=== PATIENT | male | born 1955 | race Caucasian/White ===

== ENCOUNTER 2018-02-04 11:22 | Emergency (ER) | payer OTHER ==
[2018-02-04] MEDS ORDERED: IPRATROPIUM/ALBUTEROL 0.5-2.5 MG/3 ML AMPUL NEB ONE (11:39)
--- NOTE | 2018-02-04 11:42 | ER Document Report ---
ED Medical Screen (RME) - General Chief Complaint: Shortness Of Breath Stated Complaint: COUGH Time Seen by Provider: 02/04/18 11:35 Notes: RME DISCLOSURE I have seen this patient as part of a Rapid Medical Evaluation and, if applicable, placed any initially appropriate orders. The patient will be seen and fully evaluated, including a full history and physical exam, by a provider ( in Main ED or Fast Track) when a room becomes available. 62-year-old male PMH interstitial pneumonitis (on CellCept therapy and daily prednisone) here with complaints of cough, shortness of breath, wheezing, fevers /chills, generalized weakness ongoing for the past 1-2 weeks and progressively worsening. He does wear home oxygen for his interstitial pneumonitis. He does also have a history of pneumonia. He is primarily here today because his cough has become significantly worse in the past few days. EXAM Mild to moderate diffuse end expiratory wheezes bilaterally Mildly diminished aeration Tachycardic, low 100s TRAVEL OUTSIDE OF THE [place] IN LAST 30 DAYS: No - Related Data Allergies/Adverse Reactions: No Known Allergies Allergy (Verified 02/04/18 11:24) Past Medical History - Social History Chew tobacco use (# tins/day): No Frequency of alcohol use: None Drug Abuse: None Endocrine Medical History: Reports: Hx Diabetes Mellitus Type 2 Renal/ Medical History: Denies: Hx Peritoneal Dialysis GI Medical History: Reports: Hx Gastroesophageal Reflux Disease Musculoskeltal Medical History: Reports Hx Arthritis Past Surgical History: Reports: Hx Cardiac Catheterization, Hx Cardiac Surgery - ablasion - Immunizations Immunizations up to date: Yes Hx Diphtheria, Pertussis, Tetanus Vaccination: Yes Physical Exam - Vital signs Vitals: Temp Pulse Resp BP Pulse Ox 97.8 F 109 H 18 148/72 H 97 02/04/18 11:30 02/04/18 11:30 02/04/18 11:30 02/04/18 11:30 02/04/18 11:30 Course - Vital Signs Vital signs: Temp Pulse Resp BP Pulse Ox 97.8 F 109 H 18 148/72 H 97 02/04/18 11:30 02/04/18 11:30 02/04/18 11:30 02/04/18 11:30 02/04/18 11:30
--- NOTE | 2018-02-04 12:09 | ER Document Report ---
ED General - General Chief Complaint: Shortness Of Breath Stated Complaint: COUGH Time Seen by Provider: 02/04/18 11:35 TRAVEL OUTSIDE OF THE [place] IN LAST 30 DAYS: No - HPI Patient complains to provider of: coughing Notes: 62-year-old male with chronic interstitial pneumonitis, chronically wearing oxygen presents with cough for 2 weeks. This cough is been increasing in intensity over the last 10 days. Patient also has recent exposure to a young child with pneumonia. Patient denies fever chills chest pain, nausea, vomiting. - Related Data Allergies/Adverse Reactions: No Known Allergies Allergy (Verified 02/04/18 11:24) Past Medical History - Social History Smoking Status: Never Smoker Chew tobacco use (# tins/day): No Frequency of alcohol use: None Drug Abuse: None Family History: Reviewed & Not Pertinent Patient has suicidal ideation: No Patient has homicidal ideation: No Endocrine Medical History: Reports: Hx Diabetes Mellitus Type 2 Renal/ Medical History: Denies: Hx Peritoneal Dialysis GI Medical History: Reports: Hx Gastroesophageal Reflux Disease Musculoskeltal Medical History: Reports Hx Arthritis Past Surgical History: Reports: Hx Cardiac Catheterization, Hx Cardiac Surgery - ablasion - Immunizations Immunizations up to date: Yes Hx Diphtheria, Pertussis, Tetanus Vaccination: Yes Review of Systems - Review of Systems Notes: REVIEW OF SYSTEMS: CONSTITUTIONAL: -fevers, -chills EENT: -eye pain, -difficulty swallowing, -nasal congestion CARDIOVASCULAR: -chest pain, -syncope. RESPIRATORY: Increased cough GASTROINTESTINAL: -abdominal pain, -nausea, -vomiting, -diarrhea GENITOURINARY: -dysuria, -hematuria MUSCULOSKELETAL: -back pain, -neck pain SKIN: -rash or skin lesions. HEMATOLOGIC: -easy bruising or bleeding. LYMPHATIC: -swollen, enlarged glands. NEUROLOGICAL: -altered mental status or loss of consciousness, -headache, - neurologic symptoms PSYCHIATRIC: -anxiety, -depression. ALL OTHER SYSTEMS REVIEWED AND NEGATIVE. Physical Exam - Vital signs Vitals: Temp Pulse Resp BP Pulse Ox 97.8 F 109 H 18 148/72 H 97 02/04/18 11:30 02/04/18 11:30 02/04/18 11:30 02/04/18 11:30 02/04/18 11:30 - Notes Notes: PHYSICAL EXAMINATION: GENERAL: Well-appearing, well-nourished and in no acute distress. HEAD: Atraumatic, normocephalic. EYES: Pupils equal round and reactive to light, extraocular movements intact, sclera anicteric, conjunctiva are normal. ENT: nares patent, oropharynx clear without exudates. Moist mucous membranes. NECK: Normal range of motion, supple without lymphadenopathy LUNGS: Breath sounds clear to auscultation bilaterally and equal. No wheezes rales or rhonchi. HEART: Regular rate and rhythm without murmurs ABDOMEN: Soft, nontender, normoactive bowel sounds. No guarding, no rebound. No masses appreciated. EXTREMITIES: Normal range of motion, no pitting or edema. No cyanosis. NEUROLOGICAL: Cranial nerves grossly intact. Normal speech, normal gait. Normal sensory and motor exams. PSYCH: Normal mood, normal affect. SKIN: Warm, Dry, normal turgor, no rashes or lesions noted. Course - Re-evaluation Re-evalutation: 02/04/18 12:45 Well-appearing man in no acute distress stable vital signs within normal limits. Extensive lab workup unremarkable, negative for leukocytosis. Chest x-ray is no focal infiltrate patient was concern he had a pneumonia. Near his baseline oxygen demand. Will be discharged home follow-up strict return because - Vital Signs Vital signs: Temp Pulse Resp BP Pulse Ox 97.8 F 109 H 18 148/72 H 97 02/04/18 11:30 02/04/18 11:30 02/04/18 11:30 02/04/18 11:30 02/04/18 11:30 - Laboratory Result Diagrams: 02/04/18 11:55 02/04/18 11:55 Laboratory results interpreted by me: 02/04/18 02/04/18 11:55 11:55 RBC 4.32 L Hgb 11.7 L Hct 35.3 L RDW 14.7 H Potassium 3.5 L Glucose 155 H Discharge - Discharge Clinical Impression: Cough Condition: Good Instructions: Cough Suppressant & Expectorant Medications Additional Instructions: See your PCP
[2018-02-04 12:15] LABS: ABSOLUTE BASOPHILS # (AUTO) 0.1 10^3/uL (0.0-0.2); ABSOLUTE EOSINOPHILS # (AUTO) 0.3 10^3/uL (0.0-0.6); ABSOLUTE LYMPHOCYTES (AUTO) 1.2 10^3/uL (0.5-4.7); ABSOLUTE MONOCYTES (AUTO) 0.8 10^3/uL (0.1-1.4); ABSOLUTE NEUT (AUTO) 4.7 10^3/uL (1.7-8.2); BASOPHILS % (AUTO) 0.7 % (0-2); HEMATOCRIT 35.3 % (37.9-51.0); HEMOGLOBIN 11.7 g/dL (13.5-17.0); MEAN CORPUSCULAR HEMOGLOBIN 27.2 pg (27.0-33.4); MEAN CORPUSCULAR HGB CONC 33.3 g/dL (32.0-36.0); MEAN CORPUSCULAR VOLUME 82 fl (80-97); MONOCYTES % (AUTO) 11.7 % (3-13); PLATELET COUNT 327 10^3/uL (150-450); RED BLOOD COUNT 4.32 10^6/uL (4.35-5.55); RED CELL DISTRIBUTION WIDTH 14.7 % (11.5-14.0); SEGMENTED NEUTROPHILS % (AUTO) 66.6 % (42-78); TOTAL CELLS COUNTED % (AUTO) 100 %; WHITE BLOOD COUNT 7.1 10^3/uL (4.0-10.5)
[2018-02-04 12:35] LABS: ANION GAP 17 (5-19); BLOOD UREA NITROGEN 19 mg/dL (7-20); CALCIUM 9.5 mg/dL (8.4-10.2); CARBON DIOXIDE 26 mmol/L (22-30); CHLORIDE 98 mmol/L (98-107); GLUCOSE 155 mg/dL (75-110); POTASSIUM 3.5 mmol/L (3.6-5.0); SODIUM 140.5 mmol/L (137-145)
--- NOTE | 2018-02-04 12:39 | RADIOLOGY REPORT (SQ) ---
EXAM DESCRIPTION: CHEST PA/LAT COMPLETED DATE/TIME: 02/04/2018 12:20 pm REASON FOR STUDY: cough fever; eval pneumonia COMPARISON: 04/25/2014. EXAM PARAMETERS: NUMBER OF VIEWS: two views TECHNIQUE: Digital Frontal and Lateral radiographic views of the chest acquired. RADIATION DOSE: NA LIMITATIONS: none FINDINGS: LUNGS AND PLEURA: Chronic interstitial changes. Stable mild focal scarring in the right m id lung. Pleural thickening in the apices. No focal infiltrates, masses or pneumothorax. No pleural effusion. MEDIASTINUM AND HILAR STRUCTURES: No masses or contour abnormalities. HEART AND VASCULAR STRUCTURES: Heart normal size. No evidence for failure. BONES: No acute findings. HARDWARE: None in the chest. OTHER: No other significant finding. IMPRESSION: STABLE CHRONIC PLEURAL AND PARENCHYMAL SCARRING. NO ACUTE RADIOGRAPHIC FINDING IN THE C HEST. TECHNICAL DOCUMENTATION: JOB ID: [id number] [employer]- All Rights Reserved Reading location - IP/workstation name: [email or web address]
[2018-02-04 13:32] VITALS: BP 124/86
--- NOTE | 2018-02-04 22:07 | EKG REPORT ---
SEVERITY:- ABNORMAL ECG - SINUS RHYTHM INCOMPLETE RIGHT BUNDLE BRANCH BLOCK : Confirmed by: True Ashley 04-Feb-2018 22:06:41
== END 2018-02-04 14:06 | disposition home or self-care (01) ==
LOC: ER 11:22
DX: J84.89 Other specified interstitial pulmonary diseases (principal); Z99.81 Dependence on supplemental oxygen; R05 Cough; E11.9 Type 2 diabetes mellitus without complications
CPT/HCPCS: 93005; 94640; 99285; 36415; 87040; 85025; 80048; 71046; 93010; J7620

== ENCOUNTER 2018-02-16 13:21 | Inpatient (IN) | payer OTHER ==
[2018-02-16] MEDS ORDERED: NORMAL SALINE 1000 ML 1,000 ML IV ONE ×2 (13:52→14:13)
[2018-02-16] MEDS ORDERED: VANCOMYCIN HCL INJ 1000 MG VIAL IV ONE (13:53)
[2018-02-16] MEDS ORDERED: IPRATROPIUM/ALBUTEROL 0.5-2.5 MG/3 ML AMPUL NEB ONE ×2 (13:53→14:21)
[2018-02-16] MEDS ORDERED: CEFEPIME 1 GM/D5W RTU 1 GM/50 ML RTUPB IV ONE ×2 (13:53→22:32)
--- NOTE | 2018-02-16 13:55 | ER Document Report ---
ED Medical Screen (RME) - General Chief Complaint: Productive Cough Stated Complaint: FEVER COUGH Time Seen by Provider: 02/16/18 13:51 Mode of Arrival: Wheelchair Information source: Patient Notes: This is a 62-year-old oxygen dependent, immune compromised man with hypersensitivity pneumonitis (followed at [facility]) who presents to the emergency room with fever 102-103, productive cough of brown sputum and oxygen desaturations. TRAVEL OUTSIDE OF THE [place] IN LAST 30 DAYS: No - Related Data Allergies/Adverse Reactions: No Known Allergies Allergy (Verified 02/16/18 13:24) Past Medical History Endocrine Medical History: Reports: Hx Diabetes Mellitus Type 2 - neuropathy Renal/ Medical History: Denies: Hx Peritoneal Dialysis GI Medical History: Reports: Hx Gastroesophageal Reflux Disease Musculoskeltal Medical History: Reports Hx Arthritis Past Surgical History: Reports: Hx Cardiac Catheterization, Hx Cardiac Surgery - ablasion - Immunizations Immunizations up to date: Yes Hx Diphtheria, Pertussis, Tetanus Vaccination: Yes
--- NOTE | 2018-02-16 14:13 | ER Document Report ---
ED General - General Chief Complaint: Productive Cough Stated Complaint: FEVER COUGH Time Seen by Provider: 02/16/18 13:51 Mode of Arrival: Wheelchair Information source: Patient, Relative Notes: 62-year-old male history of interstitial pneumonitis who has been on steroids for the past year presents with 3 week duration of difficulty breathing. Patient was seen here a few weeks prior told he may be allergic since he was afebrile at that time, patient notes that he is normally at 2-3 L baseline nasal cannula but has gone up to 5 L recently has been having fevers and continued productive green cough family notes when ambulating sats go down ot 75% TRAVEL OUTSIDE OF THE [place] IN LAST 30 DAYS: No - HPI Onset: Other Onset/Duration: Persistent, Worse Quality of pain: Achy Severity: Moderate Pain Level: 1 Associated symptoms: Productive cough, Fever, Nausea, Shortness of breath Exacerbated by: Walking Relieved by: Denies Similar symptoms previously: Yes Recently seen / treated by doctor: Yes - Related Data Allergies/Adverse Reactions: No Known Allergies Allergy (Verified 02/16/18 13:24) Past Medical History - General Information source: Patient - Social History Smoking Status: Never Smoker Cigarette use (# per day): No Chew tobacco use (# tins/day): No Smoking Education Provided: No Family History: Reviewed & Not Pertinent Patient has suicidal ideation: No Patient has homicidal ideation: No Endocrine Medical History: Reports: Hx Diabetes Mellitus Type 2 - neuropathy Renal/ Medical History: Denies: Hx Peritoneal Dialysis GI Medical History: Reports: Hx Gastroesophageal Reflux Disease Musculoskeltal Medical History: Reports Hx Arthritis Past Surgical History: Reports: Hx Cardiac Catheterization, Hx Cardiac Surgery - ablasion - Immunizations Immunizations up to date: Yes Hx Diphtheria, Pertussis, Tetanus Vaccination: Yes Review of Systems - Review of Systems Notes: REVIEW OF SYSTEMS: CONSTITUTIONAL : Admits to fevers EENT: Denies eye, ear, throat, or mouth pain or symptoms. Denies nasal or sinus congestion or discharge. Denies throat, tongue, or mouth swelling or difficulty swallowing. CARDIOVASCULAR: Denies chest pain. Denies palpitations or racing or irregular heart beat. Denies ankle edema. RESPIRATORY: Admits to cough congestion productive shortness of breath GASTROINTESTINAL: Denies abdominal pain or distention. Denies nausea, vomiting , or diarrhea. Denies blood in vomitus, stools, or per rectum. Denies black, tarry stools. Denies constipation. GENITOURINARY: Denies difficulty urinating, painful urination, burning, frequency, blood in urine, or discharge. MUSCULOSKELETAL: Denies back or neck pain or stiffness. Denies joint pain or swelling. SKIN: Denies rash, lesions or sores. HEMATOLOGIC : Denies easy bruising or bleeding. LYMPHATIC: Denies swollen, enlarged glands. NEUROLOGICAL: Denies confusion or altered mental status. Denies passing out or loss of consciousness. Denies dizziness or lightheadedness. Denies headache. Denies weakness or paralysis or loss of use of either side. Denies problems with gait or speech. Denies sensory loss, numbness, or tingling. Denies seizures. PSYCHIATRIC: Denies anxiety or stress. Denies depression, suicidal ideation, or homicidal ideation. ALL OTHER SYSTEMS REVIEWED AND NEGATIVE. Dictation was performed using [employer] voice recognition software PHYSICAL EXAMINATION: GENERAL: Overall well-appearing but noted to be febrile HEAD: Atraumatic, normocephalic. EYES: Pupils equal round and reactive to light, extraocular movements intact, sclera anicteric, conjunctiva are normal. ENT: Nares patent, oropharynx clear without exudates. Moist mucous membranes. NECK: Normal range of motion, supple without lymphadenopathy LUNGS: Coarse wheezing all throughout HEART: Tachycardia ABDOMEN: Soft, nontender, nondistended abdomen. No guarding, no rebound. No masses appreciated. Musculoskeletal: Normal range of motion, no pitting or edema. No cyanosis. NEUROLOGICAL: Cranial nerves grossly intact. Normal speech, normal gait. Normal sensory, motor exams PSYCH: Normal mood, normal affect. SKIN: Warm, Dry, normal turgor, no rashes or lesions noted. Course - Re-evaluation Re-evalutation: 02/16/18 14:28 pt overall looks well, but noted to by febrile, tachycardia , hypoxemia on O2, will order sepsis workup up, antibitiocs, fluids , imaging pending for probable penumona. - Laboratory Result Diagrams: 02/16/18 14:41 02/16/18 14:41 Laboratory results interpreted by me: 02/16/18 02/16/18 02/16/18 14:41 14:41 14:41 WBC 17.4 H RBC 3.72 L Hgb 9.9 L Hct 30.5 L MCH 26.6 L RDW 15.3 H Plt Count 506 H Seg Neutrophils % 84.5 H Lymphocytes % 5.9 L Absolute Neutrophils 14.7 H VBG pH 7.43 H Potassium 3.2 L Glucose 184 H Direct Bilirubin 0.6 H Albumin 3.4 L - Diagnostic Test Radiology reviewed: Image reviewed, Reports reviewed - pneumonia - EKG Interpretation by Wi EKG shows normal: Sinus rhythm, [place], Intervals, QRS Complexes Rate: Tachycardia Critical Care Note - Critical Care Note Total time excluding time spent on procedures (mins): 46 Comments: 46 minutes of critical care time spent in direct contact evaluating and reevaluating the patient, treating symptoms, reviewing labs and studies and speaking with family and consultants excluding any procedures Discharge - Discharge Clinical Impression: Hypokalemia Pneumonia Qualifiers: Pneumonia type: due to unspecified organism Laterality: right Lung location: lower lobe of lung Qualified Code(s): J18.1 - Lobar pneumonia, unspecified organism Sepsis Qualifiers: Sepsis type: sepsis due to unspecified organism Qualified Code(s): A41.9 - Sepsis, unspecified organism Condition: Fair Disposition: ADMITTED INPATIENT Admitting Provider: Hospitalist Unit Admitted: Telemetry
[2018-02-16] MEDS: NORMAL SALINE 1000 ML 1,000 ML IV PRN ×2 (14:40→15:19)
[2018-02-16 14:58] LABS: VENOUS BLOOD BASE EXCESS 0.7 mmol/L; VENOUS BLOOD HCO3 24.8 mmol/L (20-32); VENOUS BLOOD PCO2 38.3 mmHg (35-63); VENOUS BLOOD PH 7.43 (7.30-7.42)
[2018-02-16 14:59] LABS: ABSOLUTE BASOPHILS # (AUTO) 0.1 10^3/uL (0.0-0.2); ABSOLUTE EOSINOPHILS # (AUTO) 0.2 10^3/uL (0.0-0.6); ABSOLUTE MONOCYTES (AUTO) 1.4 10^3/uL (0.1-1.4); ABSOLUTE NEUT (AUTO) 14.7 10^3/uL (1.7-8.2); BASOPHILS % (AUTO) 0.5 % (0-2); EOSINOPHILS % (AUTO) 1.3 % (0-6); HEMATOCRIT 30.5 % (37.9-51.0); HEMOGLOBIN 9.9 g/dL (13.5-17.0); LYMPHOCYTES % (AUTO) 5.9 % (13-45); MEAN CORPUSCULAR HEMOGLOBIN 26.6 pg (27.0-33.4); MEAN CORPUSCULAR HGB CONC 32.4 g/dL (32.0-36.0); MEAN CORPUSCULAR VOLUME 82 fl (80-97); MONOCYTES % (AUTO) 7.8 % (3-13); PLATELET COUNT 506 10^3/uL (150-450); RED BLOOD COUNT 3.72 10^6/uL (4.35-5.55); RED CELL DISTRIBUTION WIDTH 15.3 % (11.5-14.0); SEGMENTED NEUTROPHILS % (AUTO) 84.5 % (42-78); TOTAL CELLS COUNTED % (AUTO) 100 %; WHITE BLOOD COUNT 17.4 10^3/uL (4.0-10.5)
[2018-02-16 15:18] LABS: ALANINE AMINOTRANSFERASE 33 U/L (21-72); ALBUMIN 3.4 g/dL (3.5-5.0); ALKALINE PHOSPHATASE 123 U/L (38-126); ANION GAP 16 (5-19); ASPARTATE AMINO TRANSFERASE 26 U/L (17-59); BILIRUBIN,DIRECT 0.6 mg/dL (0.0-0.4); BILIRUBIN,TOTAL 0.8 mg/dL (0.2-1.3); BLOOD UREA NITROGEN 13 mg/dL (7-20); CALCIUM 8.8 mg/dL (8.4-10.2); CARBON DIOXIDE 23 mmol/L (22-30); CHLORIDE 101 mmol/L (98-107); GLUCOSE 184 mg/dL (75-110); POTASSIUM 3.2 mmol/L (3.6-5.0); SODIUM 139.6 mmol/L (137-145); TOTAL PROTEIN 6.5 g/dL (6.3-8.2)
--- NOTE | 2018-02-16 15:18 | RADIOLOGY REPORT (SQ) ---
EXAM DESCRIPTION: CHEST SINGLE VIEW COMPLETED DATE/TIME: 02/16/2018 2:56 pm REASON FOR STUDY: fever, tachy, productive cough, hx interstitial pn COMPARISON: Chest films 02/04/2018, 04/25/2014 EXAM PARAMETERS: NUMBER OF VIEWS: One view. TECHNIQUE: Single frontal radiographic view of the chest acquired. RADIATION DOSE: NA LIMITATIONS: None. FINDINGS: LUNGS AND PLEURA: There is bilateral lower lobe airspace disease with Gregg lines worriso me for fluid overload or congestive failure. Patient has bandlike scarring in the right mid lung along the minor fissure, stable. No pleural effusion. No pneumothorax. MEDIASTINUM AND HILAR STRUCTURES: No masses. Contour normal. HEART AND VASCULAR STRUCTURES: No cardiomegaly BONES: No acute findings. HARDWARE: None in the chest. OTHER: No other significant finding. IMPRESSION: Chronic bandlike scarring right mid lung New alveolar and interstitial infiltrates at both lung bases, worrisome for alveolar and interstitial edema. Pneumonia could not entirely be excluded TECHNICAL DOCUMENTATION: JOB ID: [id number] [employer]- All Rights Reserved Reading location - IP/workstation name: [email or web address]
[2018-02-16] MEDS ORDERED: OSELTAMIVIR PHOSPHATE 75 MG CAPSULE PO ONE (17:32)
[2018-02-16] MEDS ORDERED: ONDANSETRON HCL INJ/PF 4 MG/2 ML SDV IV PRN (18:27)
[2018-02-16] MEDS ORDERED: ACETAMINOPHEN 325 MG TABLET PO PRN (18:27)
[2018-02-16] MEDS ORDERED: POTASSIUM CHLORIDE 10 MEQ TABLET.SA PO ONE (18:33)
[2018-02-16] MEDS ORDERED: VANCOMYCIN HCL 0 MG in DEXTROSE 5%-WATER 250 ML IV NR (18:45)
[2018-02-16] MEDS ORDERED: DEXTROSE 40% GEL 15 GM TUBE PO PRN ×2 (18:51)
[2018-02-16] MEDS ORDERED: GLUCAGON,HUMAN RECOMB 1 MG INJ IM PRN (18:51)
[2018-02-16] MEDS ORDERED: DEXTROSE 50%-WATER 25 GM/50 ML DISP.SYRIN IV PRN ×2 (18:51)
[2018-02-16] MEDS ORDERED: ALBUTEROL SULFATE 0.083% NEB 2.5 MG/3 ML AMPUL NEB PRN (18:57)
--- NOTE | 2018-02-16 18:57 | PDOC H&P ---
History of Present Illness Admission Date/PCP: 02/16/18 15:29 PR Patient complains of: Shortness of breath and cough History of Present Illness: MARILYNN GARCÍA is a 62 year old male presents to hospital with complaint of shortness of breath and cough for the last several days. reports that patient was seen at [place] by Dr. Kent who placed patient on CellCept and decrease patient's steroids. Patient states that by the end of November he began having more respiratory issues. reports that patient's breathing continued to worsen into December and recently they came to the emergency room for evaluation. reports that they were told that was most likely due to allergies and patient was sent home from the emergency department. Family represented today because of patient not feeling better. also reported that patient has been febrile at home. reports that temperature has been from 100.2F -103.6. Pt states that sat decreased to 75% with exertion. Conference call was held with the ER hospitalist and [place] pulmonary service who recommended that patient be transferred to their facility but due to them being on diversion recommended that patient stay here in our hospital until bed is available. [place] pulmonary doctor Grace recommended that patient be placed on Bactrim for PCP treatment, steroids, and continue with current antibiotics. Past Medical History Endocrine Medical History: Reports: Diabetes Mellitus Type 2 - neuropathy GI Medical History: Reports: Gastroesophageal Reflux Disease Musculoskeltal Medical History: Reports: Arthritis Past Surgical History Past Surgical History: Reports: Cardiac Catheterization Social History Information Source: Patient Lives with: Family Smoking Status: Never Smoker Frequency of Alcohol Use: None Hx Recreational Drug Use: No Drugs: None Hx Prescription Drug Abuse: No - Advance Directive Resuscitation Status: Do Not Resuscitate Family History Family History: Reviewed & Not Pertinent Parental Family History Reviewed: Yes Children Family History Reviewed: Yes Sibling(s) Family History Reviewed.: Yes Medication/Allergy Home Medications: Oxycodone HCl/Acetaminophen [Percocet 5-325 mg Tablet] 1 - 2 tab PO ASDIR PRN # 60 tablet 04/25/14 Oxycodone HCl/Acetaminophen [Percocet 5-325 mg Tablet] 1 - 2 tab PO ASDIR PRN # 15 tablet 09/10/16 Allergies/Adverse Reactions: No Known Allergies Allergy (Verified 02/16/18 13:24) Review of Systems Constitutional: PRESENT: weakness. ABSENT: chills, fever(s), headache(s), weight gain, weight loss Eyes: ABSENT: visual disturbances Ears: ABSENT: hearing changes Cardiovascular: ABSENT: chest pain, dyspnea on exertion, edema, orthropnea, palpitations Respiratory: PRESENT: cough, dyspnea Gastrointestinal: ABSENT: abdominal pain, constipation, diarrhea, hematemesis, hematochezia, nausea, vomiting Genitourinary: ABSENT: dysuria, hematuria Musculoskeletal: ABSENT: joint swelling Integumentary: ABSENT: rash, wounds Neurological: ABSENT: abnormal gait, abnormal speech, confusion, dizziness, focal weakness, syncope Psychiatric: ABSENT: anxiety, depression, homidical ideation, suicidal ideation Endocrine: ABSENT: cold intolerance, heat intolerance, polydipsia, polyuria Hematologic/Lymphatic: ABSENT: easy bleeding, easy bruising Physical Exam Vital Signs: Temp Pulse Resp BP Pulse Ox 30 H 136/66 H 95 02/16/18 17:00 02/16/18 16:01 02/16/18 17:00 General appearance: PRESENT: morbidly obese, well-developed, well-nourished Head exam: PRESENT: atraumatic, normocephalic Eye exam: PRESENT: conjunctiva pink, EOMI. ABSENT: scleral icterus Ear exam: PRESENT: normal external ear exam Mouth exam: PRESENT: moist, tongue midline Neck exam: ABSENT: carotid bruit, JVD, lymphadenopathy, thyromegaly Respiratory exam: PRESENT: accessory muscle use, prolonged expiratory phas, retraction, rhonchi, tachypnea, unlabored, wheezes Cardiovascular exam: PRESENT: RRR. ABSENT: diastolic murmur, rubs, systolic murmur Pulses: PRESENT: normal dorsalis pedis pul Vascular exam: PRESENT: normal capillary refill GI/Abdominal exam: PRESENT: normal bowel sounds, soft. ABSENT: distended, guarding, mass, organolmegaly, rebound, tenderness Rectal exam: PRESENT: deferred Extremities exam: PRESENT: full ROM. ABSENT: calf tenderness, clubbing, pedal edema Musculoskeletal exam: PRESENT: full ROM Neurological exam: PRESENT: alert, awake, oriented to person, oriented to place , oriented to time, oriented to situation, CN II-XII grossly intact. ABSENT: motor sensory deficit Psychiatric exam: PRESENT: appropriate affect, normal mood. ABSENT: homicidal ideation, suicidal ideation Skin exam: PRESENT: dry, intact, warm. ABSENT: cyanosis, rash Results Impressions: Chest X-Ray 02/16/18 14:21 IMPRESSION: Chronic bandlike scarring right mid lung New alveolar and interstitial infiltrates at both lung bases, worrisome for alveolar and interstitial edema. Pneumonia could not entirely be excluded Assessment & Plan - Diagnosis (1) Sepsis Qualifiers: Sepsis type: sepsis due to unspecified organism Qualified Code(s): A41.9 - Sepsis, unspecified organism Is this a current diagnosis for this admission?: Yes Plan: Febrile, respiratory rate, tachypnea, identified source Secondary to Nosocomial Pneumonia: Vancomycin and Cefepime. Will place on Tamiflu. (2) Pneumonia Is this a current diagnosis for this admission?: Yes Plan: We will continue vancomycin and cefepime. Patient placed on Bactrim for PCP (3) Acute respiratory failure with hypoxia Is this a current diagnosis for this admission?: Yes Plan: We will check ABG. Have consulted pulmonary. Patient on 5 L nasal cannula. We will continue patient on antibiotics. (4) Interstitial pneumonia Is this a current diagnosis for this admission?: Yes Plan: Interstitial Pneumonitis: Will continue Steroids and Cellcept. Will place on Bactrim treatment dose for PJP. (5) Morbid obesity Is this a current diagnosis for this admission?: Yes Plan: Encourage dietary changes. (6) Hypokalemia Is this a current diagnosis for this admission?: Yes Plan: Will give potassium replacement. Will check BMP in am (7) Diabetes Is this a current diagnosis for this admission?: Yes Plan: Will place on SSI. (8) DVT prophylaxis Is this a current diagnosis for this admission?: Yes Plan: SCDs - Time Time Spent: 30 to 50 Minutes
--- NOTE | 2018-02-16 19:21 | RADIOLOGY REPORT (SQ) ---
EXAM DESCRIPTION: CT CHEST WITHOUT COMPLETED DATE/TIME: 02/16/2018 7:01 pm REASON FOR STUDY: Pneumonia COMPARISON: Radiograph 02/16/2018 TECHNIQUE: CT scan performed of the chest without intravenous contrast. Images reviewed with lung, soft tissue and bone windows. Reconstructed coronal and sagittal MPR images reviewed. All images st ored on PACS. All CT scanners at this facility use dose modulation, iterative reconstruction, and/or weight based d osing when appropriate to reduce radiation dose to as low as reasonably achievable (ALARA). [facility]: Dose Right [facility]: CareDose [facility]: Dose Right [facility]: Teradose 4D [facility]: [employer] RADIATION DOSE: CT Rad equipment meets quality standard of care and radiation dose reduction techniq ues were employed. CTDIvol: 17.9 mGy. DLP: 701 mGy-cm. mGy. LIMITATIONS: No technical limitations. FINDINGS: LUNGS AND PLEURA: There is mild ground-glass opacification in left upper lobe and in the r ight upper lobe. More prominent infiltrates are present in the lower lobes, particularly on the righ t side. Air bronchograms are seen. HILAR AND MEDIASTINAL STRUCTURES: Mild mediastinal adenopathy, likely reactive. HEART AND VASCULAR STRUCTURES: No aneurysm. No pericardial effusion. UPPER ABDOMEN: No significant findings. Limited exam. THYROID AND OTHER SOFT TISSUES: No masses. No adenopathy. BONES: No significant finding. HARDWARE: None in the chest. OTHER: No other significant findings. IMPRESSION: Multicentric pneumonia most prominently involving the right lower lobe. Mild mediastina l adenopathy. TECHNICAL DOCUMENTATION: JOB ID: [id number] Quality ID # [id number]: Final reports with documentation of one or more dose reduction techniques (e.g., Au tomated exposure control, adjustment of the mA and/or kV according to patient size, use of iterative reconstruction technique) 2010 [employer]- All Rights Reserved Reading location - IP/workstation name: [email or web address]
[2018-02-16] MEDS ORDERED: ALBUTEROL SULFATE HFA (90 MCG/PUFF) 200 PUFF/8.5 GM MDI IH PRN (21:29)
[2018-02-16] MEDS ORDERED: METFORMIN HCL 500 MG TABLET PO SCH (22:00)
[2018-02-16 22:29] LABS: ARTERIAL BLOOD BASE EXCESS -1.1 mmol/L; ARTERIAL BLOOD FIO2 5L; ARTERIAL BLOOD H2CO3 0.96 mmol/L (1.05-1.35); ARTERIAL BLOOD HCO3 22.1 mmol/L (20-26); ARTERIAL BLOOD O2 SATURATION 96.8 % (94-98); ARTERIAL BLOOD PCO2 31.8 mmHg (35-45); ARTERIAL BLOOD PH 7.46 (7.35-7.45); ARTERIAL BLOOD PO2 82.6 mmHg (80-100)
[2018-02-16] MEDS: MONTELUKAST SODIUM 10 MG TABLET PO SCH (22:36)
[2018-02-16] MEDS: FLUOXETINE HCL 20 MG CAPSULE PO SCH (22:36)
[2018-02-16] MEDS: MYCOPHENOLATE MOFETIL 250 MG CAPSULE PO SCH (22:36)
[2018-02-16] MEDS: CEFEPIME 1 GM/D5W RTU 1 GM/50 ML RTUPB IV SCH (22:36)
[2018-02-16] MEDS: INSULIN GLARGINE,HUM.REC.ANLOG 300 UNIT/3 ML INSULN.PEN SUBCUT SCH (22:38)
[2018-02-17] MEDS ORDERED: LORAZEPAM 0.5 MG TABLET PO PRN (01:15)
[2018-02-17] MEDS: VANCOMYCIN HCL 1,250 MG in DEXTROSE 5%-WATER 250 ML IV SCH ×3 (01:19→18:29)
[2018-02-17] MEDS: LANSOPRAZOLE 30 MG TAB.RAP.DR PO SCH (05:49)
--- NOTE | 2018-02-17 07:56 | PDOC PROGRESS REPORT ---
Subjective Progress Note for:: 02/17/18 Subjective:: Pt states that he is feeling a little better this morning. Spoke to [facility] transfer line who states that they are hoping to have a bed later this afternoon. Reason For Visit: ACUTE AND CHRONIC HYPOXIC RESPIRATORY FAILURE, Physical Exam Vital Signs: Temp Pulse Resp BP Pulse Ox 99.7 F 124 H 34 H 146/78 H 94 02/17/18 06:00 02/16/18 20:26 02/17/18 06:00 02/17/18 05:24 02/17/18 06:00 Intake & Output 02/16/18 02/17/18 02/18/18 06:59 06:59 06:59 Intake Total 700 Output Total 850 Balance -150 Weight 111.9 kg General appearance: PRESENT: no acute distress, morbidly obese, well-developed, well-nourished Head exam: PRESENT: atraumatic, normocephalic Eye exam: PRESENT: conjunctiva pink, EOMI. ABSENT: scleral icterus Ear exam: PRESENT: normal external ear exam Mouth exam: PRESENT: moist, tongue midline Neck exam: ABSENT: carotid bruit, JVD, lymphadenopathy, thyromegaly Respiratory exam: PRESENT: prolonged expiratory phas, rhonchi, wheezes Cardiovascular exam: PRESENT: RRR. ABSENT: diastolic murmur, rubs, systolic murmur Pulses: PRESENT: normal dorsalis pedis pul Vascular exam: PRESENT: normal capillary refill GI/Abdominal exam: PRESENT: normal bowel sounds, soft. ABSENT: distended, guarding, mass, organolmegaly, rebound, tenderness Rectal exam: PRESENT: deferred Extremities exam: PRESENT: full ROM. ABSENT: calf tenderness, clubbing, pedal edema Musculoskeletal exam: PRESENT: full ROM Neurological exam: PRESENT: alert, awake, oriented to person, oriented to place , oriented to time, oriented to situation, CN II-XII grossly intact. ABSENT: motor sensory deficit Psychiatric exam: PRESENT: appropriate affect, normal mood. ABSENT: homicidal ideation, suicidal ideation Skin exam: PRESENT: dry, intact, warm. ABSENT: cyanosis, rash Results Laboratory Results: 02/16/18 21:15 Carbonic Acid 0.96 L HCO3/H2CO3 Ratio 23:1 ABG pH 7.46 H ABG pCO2 31.8 L ABG pO2 82.6 ABG HCO3 22.1 ABG O2 Saturation 96.8 ABG Base Excess -1.1 FiO2 5L 02/16/18 02/17/18 19:05 01:02 Troponin I 0.062 0.056 Impressions: Chest CT 02/16/18 00:00 IMPRESSION: Multicentric pneumonia most prominently involving the right lower lobe. Mild mediastinal adenopathy. Chest X-Ray 02/16/18 14:21 IMPRESSION: Chronic bandlike scarring right mid lung New alveolar and interstitial infiltrates at both lung bases, worrisome for alveolar and interstitial edema. Pneumonia could not entirely be excluded Assessment & Plan - Diagnosis (1) Sepsis Qualifiers: Sepsis type: sepsis due to unspecified organism Qualified Code(s): A41.9 - Sepsis, unspecified organism Is this a current diagnosis for this admission?: Yes Plan: Febrile, respiratory rate, tachypnea, identified source Secondary to Nosocomial Pneumonia: Vancomycin and Cefepime. Will continue Tamiflu. (2) Pneumonia Is this a current diagnosis for this admission?: Yes Plan: We will continue vancomycin and cefepime. Patient placed on Bactrim for PCP (3) Acute respiratory failure with hypoxia Is this a current diagnosis for this admission?: Yes Plan: Pulmonary Consulted. Patient on 5 L nasal cannula. We will continue patient on antibiotics. (4) Dyspnea Is this a current diagnosis for this admission?: Yes Plan: Acute on chronic secondary to interstitial lung disease: We will obtain a 2D echo to evaluate patient's heart function. BMP ordered. Patient was not continued on maintenance IV fluids due to patient receiving 3 L of normal saline and emergency room department. (5) Interstitial pneumonia Is this a current diagnosis for this admission?: Yes Plan: Interstitial Pneumonitis: Will continue current antibiotics. Will continue bactrim for PCP (6) Morbid obesity Is this a current diagnosis for this admission?: Yes Plan: Encourage dietary changes. (7) Hypokalemia Is this a current diagnosis for this admission?: Yes Plan: CMP pending. (8) Diabetes Is this a current diagnosis for this admission?: Yes Plan: Will continue on SSI. (9) DVT prophylaxis Is this a current diagnosis for this admission?: Yes Plan: SCDs - Time Time Spent with patient: 35 or more minutes - Spoke to do transfer line who has stated that patient could possibly be transferred to their facility later today. Will wait for further information. Appreciate Dr. Baljinder Mazariegos who has graciously accepted patient at [facility].
[2018-02-17] MEDS ORDERED: (PENDING PHARMACY ID) (Insulin Aspart [Novolog Flexpen] 20 UNIT) SUBCUT SCH (08:00)
[2018-02-17] MEDS ORDERED: LANSOPRAZOLE 30 MG TAB.RAP.DR PO SCH (08:00)
[2018-02-17] MEDS: FUROSEMIDE 20 MG TABLET PO SCH (08:01)
[2018-02-17 08:02] LABS: HEMATOCRIT 26.2 % (37.9-51.0); HEMOGLOBIN 8.8 g/dL (13.5-17.0); MEAN CORPUSCULAR HEMOGLOBIN 27.4 pg (27.0-33.4); MEAN CORPUSCULAR HGB CONC 33.4 g/dL (32.0-36.0); MEAN CORPUSCULAR VOLUME 82 fl (80-97); PLATELET COUNT 423 10^3/uL (150-450); RED CELL DISTRIBUTION WIDTH 15.4 % (11.5-14.0); WHITE BLOOD COUNT 13.1 10^3/uL (4.0-10.5)
[2018-02-17] MEDS: INSULIN LISPRO 100 UNIT/ML 3 ML VIAL SUBCUT SCH ×3 (08:03→18:29)
[2018-02-17] MEDS: ALBUTEROL SULFATE 0.083% NEB 2.5 MG/3 ML AMPUL NEB PRN ×3 (08:27→20:54)
[2018-02-17 08:32] LABS: ABSOLUTE LYMPHOCYTES# (MANUAL) 0.9 10^3/uL (0.5-4.7); ABSOLUTE MONOCYTES # (MANUAL) 1.7 10^3/uL (0.1-1.4); ABSOLUTE NEUTROPHILS# (MANUAL) 10.3 10^3/uL (1.7-8.2); ALANINE AMINOTRANSFERASE 28 U/L (21-72); ALBUMIN 2.6 g/dL (3.5-5.0); ALKALINE PHOSPHATASE 97 U/L (38-126); ANION GAP 9 (5-19); ASPARTATE AMINO TRANSFERASE 19 U/L (17-59); BASOPHILS % (MANUAL) 0 % (0-2); BILIRUBIN,DIRECT 0.4 mg/dL (0.0-0.4); BILIRUBIN,TOTAL 0.6 mg/dL (0.2-1.3); BLOOD UREA NITROGEN 9 mg/dL (7-20); CALCIUM 8.2 mg/dL (8.4-10.2); CARBON DIOXIDE 23 mmol/L (22-30); CHLORIDE 110 mmol/L (98-107); EOSINOPHILS % (MANUAL) 1 % (0-6); GLUCOSE 142 mg/dL (75-110); LYMPHOCYTES % (MANUAL) 7 % (13-45); METAMYELOCYTES % (MANUAL) 1 % (0); MONOCYTES % (MANUAL) 13 % (3-13); POLYCHROMASIA SLIGHT; POTASSIUM 3.6 mmol/L (3.6-5.0); ROULEAUX 1+; SEGMENTED NEUTROPHILS % (MAN) 78 % (42-78); SODIUM 141.9 mmol/L (137-145); TOTAL CELLS COUNTED 100; TOTAL PROTEIN 5.2 g/dL (6.3-8.2); TOXIC GRANULATION 2+
[2018-02-17 08:33] LABS: ANISOCYTOSIS SLIGHT; PLATELET COMMENT ADEQUATE
[2018-02-17] MEDS: METHYLPREDNISOLONE INJ 40 MG/1 ML SDV IV SCH (09:09)
[2018-02-17] MEDS: FLUTICASONE NASAL SPRAY 50 MCG/SPRY 120 SPRAY/16 GM NASL SCH (09:10)
[2018-02-17] MEDS: BACLOFEN 10 MG TABLET PO SCH ×2 (09:10→18:28)
[2018-02-17] MEDS: MYCOPHENOLATE MOFETIL 250 MG CAPSULE PO SCH ×2 (09:10→21:30)
[2018-02-17] MEDS: TIOTROPIUM BROMIDE DPI 5 CAP/KIT (18 MCG/CAP) IH SCH (09:11)
[2018-02-17] MEDS ORDERED: OSELTAMIVIR PHOSPHATE 75 MG CAPSULE PO SCH (10:00)
[2018-02-17] MEDS ORDERED: SULFAMETHOXAZOLE/TRIMETHOPRIM 800-160 MG TABLET PO SCH ×2 (10:00)
[2018-02-17] MEDS ORDERED: SULFAMETHOXAZOLE/TRIMETHOPRIM 800-160 MG TABLET PO ONE (10:00)
[2018-02-17] MEDS: CEFEPIME 1 GM/D5W RTU 1 GM/50 ML RTUPB IV SCH ×2 (10:45→21:32)
--- NOTE | 2018-02-17 11:04 | EKG REPORT ---
SEVERITY:- ABNORMAL ECG - SINUS TACHYCARDIA INCOMPLETE RIGHT BUNDLE BRANCH BLOCK : Confirmed by: True Ashley 17-Feb-2018 11:03:49
[2018-02-17] MEDS: GABAPENTIN 300 MG CAPSULE PO SCH (11:17)
[2018-02-17] MEDS: FERROUS SULFATE 325 MG TABLET PO SCH (11:17)
[2018-02-17] MEDS ORDERED: PREDNISONE 10 MG TABLET PO SCH (12:00)
--- NOTE | 2018-02-17 13:12 | XCELERA REPORT ---
[address] [address] Transthoracic Echocardiogram Report Name: MARILYNN GARCÍA Age: 62 yrs Gender: Male : 1955 Patient Status: Inpatient Patient Location: ICU^1^A Study Date: 02/17/2018 09:35 AM Height: 75 in Weight: 246 lb BSA: 2.4 m2 Procedure: A complete two-dimensional transthoracic echocardiogram was performed (2D, M-mode, spectral and color flow Doppler). The study was technically difficult with many images being suboptimal in quality. Reason For Study: Shortness of breath Ordering Physician: MENDEL MONTILLA Performed By: Nathaly Lacy Interpretation Summary The left ventricular ejection fraction is normal. Doppler measurements suggest pseudonormalized left ventricular relaxation, which is associated with grade II/IV or mild to moderate diastolic dysfunction There is mild concentric left ventricular hypertrophy. The left ventricle is grossly normal size. Wall motion cannot be accurately commented on, but no definite regional wall motion abnormalities noted. The right ventricle is moderately dilated. The right ventricle appears to be hypertrophied The right ventricular systolic function is borderline reduced. The right atrium is mildly dilated. The left atrial size is normal. There is a trace to mild amount of mitral regurgitation There is no mitral valve stenosis. No aortic regurgitation is present. There is no aortic valve stenosis There is a trace to mild amount of tricuspid regurgitation There is mild to moderate pulmonary hypertension by echo Best estimated RVSP is approximately 40-45 mm/Hg. The aortic root is not well visualized but is probably normal size. The inferior vena cava appeared normal and decreased > 50% with respiration (RAP 5-10 mmHg) There is no pericardial effusion. MMode/2D Measurements & Calculations RVDd: 2.7 cm LVIDd: 4.4 cm FS: 33.4 % Ao root diam: 3.3 cm IVSd: 1.3 cm LVIDs: 3.0 cm EDV(Teich): 89.3 ml LVPWd: 1.3 cm ESV(Teich): 33.6 ml Ao root area: 8.3 cm2 EF(Teich): 62.3 % Doppler Measurements & Calculations MV E max eleanor: MV dec slope: Ao V2 max: LV V1 max P.2 cm/sec 163.4 cm/sec 6.3 mmHg MV A max eleanor: 559.4 cm/sec2 Ao max PG: LV V1 max: 110.4 cm/sec MV dec time: 10.7 mmHg 125.1 cm/sec MV E/A: 0.84 0.17 sec MR max eleanor: PA V2 max: TR max eleanor: 550.4 cm/sec 78.8 cm/sec 257.9 cm/sec MR max PG: PA max P.5 mmHg TR max P.2 mmHg 27.2 mmHg Left Ventricle The left ventricle is grossly normal size. There is mild concentric left ventricular hypertrophy. The left ventricular ejection fraction is normal. Doppler measurements suggest pseudonormalized left ventricular relaxation, which is associated with grade II/IV or mild to moderate diastolic dysfunction. Wall motion cannot be accurately commented on, but no definite regional wall motion abnormalities noted. Right Ventricle The right ventricle is moderately dilated. The right ventricle appears to be hypertrophied. The right ventricular systolic function is borderline reduced. Atria The right atrium is mildly dilated. The left atrial size is normal. Interarterial septum not well visualized and not well dopplered. Cannot comment on ASD/PFO presence. Mitral Valve The mitral valve is grossly normal. There is no mitral valve stenosis. There is a trace to mild amount of mitral regurgitation. Aortic Valve The aortic valve is grossly normal. There is no aortic valve stenosis. No aortic regurgitation is present. Tricuspid Valve The tricuspid valve is not well visualized secondary to technical limitations. There is a trace to mild amount of tricuspid regurgitation. There is mild to moderate pulmonary hypertension by echo. Best estimated RVSP is approximately 40-45 mm/Hg. Pulmonic Valve The pulmonic valve is not well visualized. Great Vessels The aortic root is not well visualized but is probably normal size. The inferior vena cava appeared normal and decreased > 50% with respiration (RAP 5-10 mmHg). Effusions There is no pericardial effusion. : MENDEL MONTILLA > True Ashley
[2018-02-17] MEDS: SULFAMETHOXAZOLE/TRIMETHOPRIM 800-160 MG TABLET PO SCH ×2 (15:24→21:29)
[2018-02-17] MEDS ORDERED: INSULIN ASPART 22 UNIT SUBCUT SCH (17:00)
[2018-02-17] MEDS: OSELTAMIVIR PHOSPHATE 75 MG CAPSULE PO SCH (18:29)
--- NOTE | 2018-02-17 20:50 | PDOC CONSULTATION ---
Consultation Consult Date: 02/17/18 Attending physician:: MENDEL MONTILLA Consult reason:: Respiratory distress History of Present Illness Admission Date/PCP: 02/16/18 15:29 Patient complains of: Shortness of breath History of Present Illness: MARILYNN GARCÍA is a 62 year old male presents to hospital with complaint of shortness of breath and cough for the last several days. reports that patient was seen at [facility] by Dr. Kent who placed patient on CellCept and decrease patient's steroids. Patient states that by the end of November he began having more respiratory issues. reports that patient's breathing continued to worsen into December and recently they came to the emergency room for evaluation. reports that they were told that was most likely due to allergies and patient was sent home from the emergency department. Family represented today because of patient not feeling better. also reported that patient has been febrile at home. reports that temperature has been from 100.2F -103.6. Pt states that sat decreased to 75% with exertion. Conference call was held with the ER hospitalist and [facility] pulmonary service who recommended that patient be transferred to their facility but due to them being on diversion recommended that patient stay here in our hospital until bed is available. [facility] pulmonary doctor Grace recommended that patient be placed on Bactrim for PCP treatment, steroids, and continue with current antibiotics. This history was reviewed and confirmed. On repeated questioning patient denied any chest pain. He denied any history of blockages but describes history of chronic interstitial lung disease. Patient is on waiting list for transfer to [facility]. A 2D echo which was ordered and completed was reviewed. Findings discussed with patient family. Past Medical History Pulmonary Medical History: Reports: Chronic Obstructive Pulmonary Disease (COPD) , Other - Interstitial lung disease Endocrine Medical History: Reports: Diabetes Mellitus Type 2 - neuropathy GI Medical History: Reports: Gastroesophageal Reflux Disease Musculoskeltal Medical History: Reports: Arthritis Past Surgical History Past Surgical History: Reports: Cardiac Catheterization Social History Information Source: Patient Lives with: Family Smoking Status: Never Smoker Frequency of Alcohol Use: None Hx Recreational Drug Use: No Drugs: None Hx Prescription Drug Abuse: No - Advance Directive Resuscitation Status: Do Not Resuscitate Surrogate healthcare decision maker:: Patient's is the surrogate decision-maker Family History Family History: Reviewed & Not Pertinent Parental Family History Reviewed: Yes Children Family History Reviewed: Yes Sibling(s) Family History Reviewed.: Yes Medication/Allergy Home Medications: Albuterol Sulfate [Proair HFA] 2 puff IH Q4HP PRN 02/16/18 Baclofen [Baclofen 10 mg Tablet] 10 mg PO BID 02/16/18 Ferrous Sulfate [Iron] 325 mg PO NOON 02/16/18 Fluoxetine HCl [Prozac 20 mg Capsule] 20 mg PO QHS 02/16/18 Fluticasone Propionate [Flonase Allergy Relief] 2 spray NASL DAILY 02/16/18 Furosemide [Lasix 20 mg Tablet] 20 mg PO QAM 02/16/18 Gabapentin [Neurontin] 300 mg PO NOON 02/16/18 Insulin Aspart [Novolog Flexpen] 20 unit SUBCUT BIDACBL 02/16/18 Insulin Aspart [Novolog Flexpen] 22 unit SUBCUT WSUPPER 02/16/18 Insulin Glargine,Hum.rec.anlog [Lantus Insulin 100 Unit/mL] 24 unit SUBCUT QHS 02/16/18 Metformin HCl [Metformin HCl ER] 1,000 mg PO BID 02/16/18 Montelukast Sodium [Singulair 10 mg Tablet] 10 mg PO QHS 02/16/18 Mycophenolate Mofetil [Cellcept 250 mg Capsule] 1,000 mg PO Q12 02/16/18 Pantoprazole Sodium [Protonix] 40 mg PO BID 02/16/18 Pravastatin Sodium [Pravachol] 20 mg PO QHS 02/16/18 Prednisone [Deltasone 10 mg Tablet] 10 mg PO NOON 02/16/18 Sulfamethoxazole/Trimethoprim [Bactrim 400-80 mg Tablet] 2 tab PO MOWEFR@1000 Tiotropium [place] [Spiriva Handihaler 18 mcg/dose (30 Dose)] 1 cap IH DAILY Allergies/Adverse Reactions: No Known Allergies Allergy (Verified 02/16/18 13:24) Review of Systems Review of Systems: Please see history of present illness and past medical history as wall. Constitutional: fever or chills reported. Head : No recent chronic headaches, recent head injury. Eyes: No recent eye pain, diplopia, redness, discharge, acute visual changes. Ears: No recent chronic ear pain, acute hearing loss, ear discharge. Oral cavity: No recent ulcerations, bleeding, oral cavity discomfort. Neck: No recent acute neck pain reported. Hematologic: No recent easy bruising or bleeding or hematologic malignancy reported. Lymphatic: No recent lymphatic malignancy, chronic lymphadenopathy reported yet Cardiovascular system review: See history of present illness. Respiratory system review: Recent cough and congestion reported but denies hemoptysis, blood clots in the lungs reported. Severe shortness of breath on exertion Gastrointestinal system review: Negative for any recent acute or chronic abdominal pain, hematemesis, melena, recent change in bowel habits. Genitourinary system review: No recent acute or chronic hematuria, flank pain, UTI etc. reported. Skin system review: Negative for any recent abnormal bruising, no rash, no pruritus reported. Neurologic: No prior history of strokes, mini strokes, seizure disorder. Psychologic: No history of major psychosis or major depression reported. Musculoskeletal: Minor aches and pains reported. No acute joint swelling reported. Endocrine: No recent polyuria, polydipsia, recent heat or cold intolerance. Physical Exam Vital Signs: Temp Pulse Resp BP Pulse Ox 97.6 F 95 30 H 115/58 L 97 02/17/18 19:56 02/17/18 18:00 02/17/18 18:00 02/17/18 18:00 02/17/18 18:00 Intake & Output 02/16/18 02/17/18 02/18/18 06:59 06:59 06:59 Intake Total 700 1417 Output Total 850 1550 Balance -150 -133 Weight 111.9 kg Exam: GENERAL: well-nourished and in no acute distress. Alert and oriented x3 HEAD: Atraumatic, normocephalic. EYES: Pupils equal round and reactive to light, extraocular movements intact, sclera anicteric, conjunctiva are normal. ENT: TMs normal, nares patent, oropharynx clear without exudates. Moist mucous membranes. No oral ulcerations or bleeding gums noted NECK: supple without lymphadenopathy. Trachea is central. No cervical or axillary lymphadenopathy noted. Carotids are 2+, JVD 8-10 cm LUNGS: Respiration seems nonlabored, no significant accessory muscle action noted. Bibasilar fine crackles noted. No wheezes rales or rhonchi noted. Few a scattered significant dullness noted on percussion. CHEST: Palpation of the chest wall shows no significant chest wall tenderness. No other significant abnormalities noted. 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 ABDOMEN: Soft, no significant tenderness appreciated, normoactive bowel sounds. No guarding, no rebound. No rigidity noted . No masses appreciated. EXTREMITIES: Pedal pulses are 1-2+, no calf tenderness noted. No clubbing or cyanosis. 1+ pedal edema noted NEUROLOGICAL: Focused neurological exam showed no significant neurologic deficit. Normal speech, no focal weakness appreciated. PSYCH: Normal mood, normal affect. Judgment and insight within normal limits. SKIN: No significant ecchymosis, skin is noted to be warm. MUSCULOSKELETAL EXAM: No significant acute joint swelling noted. Results Laboratory Results: 02/17/18 07:50 02/17/18 07:50 02/16/18 02/17/18 02/17/18 21:15 07:50 07:50 WBC 13.1 H RBC 3.20 L Hgb 8.8 L Hct 26.2 L MCV 82 MCH 27.4 MCHC 33.4 RDW 15.4 H Plt Count 423 Seg Neutrophils % Not Reportable Lymphocytes % Not Reportable Monocytes % Not Reportable Eosinophils % Not Reportable Basophils % Not Reportable Absolute Neutrophils Not Reportable Absolute Lymphocytes Not Reportable Absolute Monocytes Not Reportable Absolute Eosinophils Not Reportable Absolute Basophils Not Reportable Carbonic Acid 0.96 L HCO3/H2CO3 Ratio 23:1 ABG pH 7.46 H ABG pCO2 31.8 L ABG pO2 82.6 ABG HCO3 22.1 ABG O2 Saturation 96.8 ABG Base Excess -1.1 FiO2 5L Sodium 141.9 Potassium 3.6 Chloride 110 H Carbon Dioxide 23 Anion Gap 9 BUN 9 Creatinine 0.91 Est GFR ( Amer) > 60 Est GFR (Non-Af Amer) > 60 Glucose 142 H Calcium 8.2 L Magnesium 1.5 L Total Bilirubin 0.6 AST 19 ALT 28 Alkaline Phosphatase 97 Total Protein 5.2 L Albumin 2.6 L 02/16/18 23:30 Sputum Gram Stain - Final 02/16/18 23:30 Sputum Sputum Culture - Final 02/16/18 02/17/18 02/17/18 19:05 01:02 07:50 Troponin I 0.062 0.056 0.044 NT-Pro-B Natriuret Pep 02/17/18 07:50 Troponin I NT-Pro-B Natriuret Pep 1270 H EKG Comments: Sinus tachycardia, right ventricular hypertrophy, minor nonspecific ST-T wave changes Impressions: Chest CT 02/16/18 00:00 IMPRESSION: Multicentric pneumonia most prominently involving the right lower lobe. Mild mediastinal adenopathy. Chest X-Ray 02/16/18 14:21 IMPRESSION: Chronic bandlike scarring right mid lung New alveolar and interstitial infiltrates at both lung bases, worrisome for alveolar and interstitial edema. 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 use: unspecified custodial insulin use status Diabetes mellitus complication status : with unspecified complications Qualified Code(s): E11.8 - Type 2 diabetes mellitus with unspecified complications Is this a current diagnosis for this admission?: Yes (3) Interstitial pneumonia Is this a current diagnosis for this admission?: Yes (4) CHF (congestive heart failure) Qualifiers: Heart failure type: right-sided Heart failure chronicity: acute on chronic Qualified Code(s): I50.813 - Acute on chronic right heart failure Is this a current diagnosis for this admission?: Yes (5) Elevated troponin I level Is this a current diagnosis for this admission?: Yes - Notes Notes: Acute respiratory failure: Most likely related to pneumonia and institution lungs disease. Continue with antibiotic therapy, oxygenation, may consider bilevel therapy etc. CHF: Patient felt to have right-sided CHF. JVP is borderline elevated. BNP is elevated. Patient has peripheral edema. Continue current diuretic therapy. Interstitial pneumonia: Patient on antibiotic therapy directed by [facility] physicians and also hospitalist here. Diabetes: Continue current management plans. Elevated troponin I: Most likely related to hypoxemia and pneumonia. Do not feel patient has acute coronary syndrome. However will repeat an EKG in the morning to look for any evolving changes. - Time Time Spent: 30 to 50 Minutes - CODE STATUS was discussed, patient remains full code. Surrogate decision-maker unchanged. Multiple medical problems were addressed. More than 50% of the time spent coordinating care, discussing management plans with involved caregivers. Management plans discussed with involved personnels. Medical decision making was of moderate to high complexity , patient's has multiple comorbidities. Medications reviewed and adjusted accordingly: Yes
[2018-02-17] MEDS: FLUOXETINE HCL 20 MG CAPSULE PO SCH (21:30)
[2018-02-17] MEDS: MONTELUKAST SODIUM 10 MG TABLET PO SCH (21:30)
[2018-02-17] MEDS: INSULIN GLARGINE,HUM.REC.ANLOG 300 UNIT/3 ML INSULN.PEN SUBCUT SCH (21:33)
[2018-02-17] MEDS: INSULIN LISPRO 100 UNIT/ML 3 ML VIAL SUBCUT PRN (21:46)
[2018-02-18] MEDS: SULFAMETHOXAZOLE/TRIMETHOPRIM 800-160 MG TABLET PO SCH ×4 (02:27→22:21)
[2018-02-18] MEDS: VANCOMYCIN HCL 1,250 MG in DEXTROSE 5%-WATER 250 ML IV SCH ×3 (02:28→18:07)
[2018-02-18 04:15] LABS: HEMATOCRIT 26.2 % (37.9-51.0); HEMOGLOBIN 8.6 g/dL (13.5-17.0); MEAN CORPUSCULAR HEMOGLOBIN 26.9 pg (27.0-33.4); MEAN CORPUSCULAR HGB CONC 32.9 g/dL (32.0-36.0); MEAN CORPUSCULAR VOLUME 82 fl (80-97); PLATELET COUNT 403 10^3/uL (150-450); RED BLOOD COUNT 3.21 10^6/uL (4.35-5.55); RED CELL DISTRIBUTION WIDTH 15.3 % (11.5-14.0); WHITE BLOOD COUNT 14.1 10^3/uL (4.0-10.5)
[2018-02-18 04:25] LABS: ALANINE AMINOTRANSFERASE 33 U/L (21-72); ALBUMIN 2.8 g/dL (3.5-5.0); ALKALINE PHOSPHATASE 110 U/L (38-126); ANION GAP 14 (5-19); ASPARTATE AMINO TRANSFERASE 20 U/L (17-59); BILIRUBIN,DIRECT 0.2 mg/dL (0.0-0.4); BILIRUBIN,TOTAL 0.2 mg/dL (0.2-1.3); BLOOD UREA NITROGEN 14 mg/dL (7-20); CALCIUM 8.7 mg/dL (8.4-10.2); CARBON DIOXIDE 21 mmol/L (22-30); CHLORIDE 106 mmol/L (98-107); GLUCOSE 136 mg/dL (75-110); POTASSIUM 3.7 mmol/L (3.6-5.0); SODIUM 140.5 mmol/L (137-145); TOTAL PROTEIN 5.3 g/dL (6.3-8.2)
[2018-02-18 04:32] LABS: ABSOLUTE LYMPHOCYTES# (MANUAL) 0.3 10^3/uL (0.5-4.7); ABSOLUTE MONOCYTES # (MANUAL) 0.6 10^3/uL (0.1-1.4); ABSOLUTE NEUTROPHILS# (MANUAL) 13.3 10^3/uL (1.7-8.2); BAND NEUTROPHILS % (MANUAL) 2 % (3-5); BASOPHILS % (MANUAL) 0 % (0-2); EOSINOPHILS % (MANUAL) 0 % (0-6); LYMPHOCYTES % (MANUAL) 2 % (13-45); MONOCYTES % (MANUAL) 4 % (3-13); SEGMENTED NEUTROPHILS % (MAN) 92 % (42-78); TOTAL CELLS COUNTED 100
[2018-02-18 04:36] LABS: ANISOCYTOSIS SLIGHT; BURR CELLS SLIGHT; HYPOCHROMASIA SLIGHT; OVALOCYTES SLIGHT; PLATELET COMMENT ADEQUATE; POIKILOCYTOSIS SLIGHT; STOMATOCYTES SLIGHT
[2018-02-18] MEDS: LANSOPRAZOLE 30 MG TAB.RAP.DR PO SCH (07:45)
[2018-02-18] MEDS: FUROSEMIDE 20 MG TABLET PO SCH (08:01)
[2018-02-18] MEDS: INSULIN LISPRO 100 UNIT/ML 3 ML VIAL SUBCUT SCH ×3 (08:03→18:09)
--- NOTE | 2018-02-18 09:16 | EKG REPORT ---
SEVERITY:- ABNORMAL ECG - SINUS RHYTHM NONSPECIFIC INTRAVENTRICULAR CONDUCTION DELAY MINIMAL ST DEPRESSION, ANTERIOR LEADS CONSIDER RVH CONSIDER POST PR : Confirmed by: True Ashley 18-Feb-2018 09:15:25
[2018-02-18] MEDS: CEFEPIME 1 GM/D5W RTU 1 GM/50 ML RTUPB IV SCH ×2 (09:58→22:21)
[2018-02-18] MEDS: MYCOPHENOLATE MOFETIL 250 MG CAPSULE PO SCH ×2 (09:59→22:27)
[2018-02-18] MEDS: BACLOFEN 10 MG TABLET PO SCH ×2 (09:59→18:07)
[2018-02-18] MEDS: FLUTICASONE NASAL SPRAY 50 MCG/SPRY 120 SPRAY/16 GM NASL SCH (10:00)
[2018-02-18] MEDS: OSELTAMIVIR PHOSPHATE 75 MG CAPSULE PO SCH ×2 (10:00→18:07)
[2018-02-18] MEDS: TIOTROPIUM BROMIDE DPI 5 CAP/KIT (18 MCG/CAP) IH SCH (10:01)
[2018-02-18] MEDS: METHYLPREDNISOLONE INJ 40 MG/1 ML SDV IV SCH (10:02)
[2018-02-18] MEDS: ALBUTEROL SULFATE 0.083% NEB 2.5 MG/3 ML AMPUL NEB PRN ×2 (10:29→20:52)
[2018-02-18 10:46] LABS: VANCOMYCIN,TROUGH 8.8 ug/mL (5.0-20.0)
--- NOTE | 2018-02-18 10:47 | PDOC PROGRESS REPORT ---
Subjective Progress Note for:: 02/18/18 Subjective:: Patient states that his breathing had improved yesterday but today is not as good. Patient states he is able to take deeper breaths and that cough is nonproductive. Nursing states that patient has been pretty stable overnight. Nurse states that patient slept in his recliner. Reason For Visit: ACUTE AND CHRONIC HYPOXIC RESPIRATORY FAILURE, Physical Exam Vital Signs: Temp Pulse Resp BP Pulse Ox 97.7 F 67 25 H 142/80 H 96 02/18/18 08:00 02/18/18 08:25 02/18/18 10:00 02/18/18 08:03 02/18/18 10:00 Intake & Output 02/17/18 02/18/18 02/19/18 06:59 06:59 06:59 Intake Total 700 2197 Output Total 850 3000 Balance -150 -803 Weight 111.9 kg 111.8 kg General appearance: PRESENT: mild distress, well-developed, well-nourished Head exam: PRESENT: atraumatic, normocephalic Eye exam: PRESENT: conjunctiva pink, EOMI. ABSENT: scleral icterus Ear exam: PRESENT: normal external ear exam Mouth exam: PRESENT: moist, tongue midline Neck exam: ABSENT: carotid bruit, JVD, lymphadenopathy, thyromegaly Respiratory exam: PRESENT: other - coarse breath sounds, + diminished breath sounds Cardiovascular exam: PRESENT: RRR. ABSENT: diastolic murmur, rubs, systolic murmur Pulses: PRESENT: normal dorsalis pedis pul Vascular exam: PRESENT: normal capillary refill GI/Abdominal exam: PRESENT: normal bowel sounds, soft. ABSENT: distended, guarding, mass, organolmegaly, rebound, tenderness Rectal exam: PRESENT: deferred Extremities exam: PRESENT: full ROM, pedal edema, +1 edema. ABSENT: calf tenderness, clubbing Musculoskeletal exam: PRESENT: full ROM Neurological exam: PRESENT: alert, awake, oriented to person, oriented to place , oriented to time, oriented to situation, CN II-XII grossly intact. ABSENT: motor sensory deficit Psychiatric exam: PRESENT: appropriate affect, normal mood. ABSENT: homicidal ideation, suicidal ideation Skin exam: PRESENT: dry, intact, warm. ABSENT: cyanosis, rash Results Laboratory Results: 02/18/18 03:55 02/18/18 03:55 02/18/18 02/18/18 03:55 03:55 WBC 14.1 H RBC 3.21 L Hgb 8.6 L Hct 26.2 L MCV 82 MCH 26.9 L MCHC 32.9 RDW 15.3 H Plt Count 403 Seg Neutrophils % Not Reportable Lymphocytes % Not Reportable Monocytes % Not Reportable Eosinophils % Not Reportable Basophils % Not Reportable Absolute Neutrophils Not Reportable Absolute Lymphocytes Not Reportable Absolute Monocytes Not Reportable Absolute Eosinophils Not Reportable Absolute Basophils Not Reportable Sodium 140.5 Potassium 3.7 Chloride 106 Carbon Dioxide 21 L Anion Gap 14 BUN 14 Creatinine 0.87 Est GFR ( Amer) > 60 Est GFR (Non-Af Amer) > 60 Glucose 136 H Calcium 8.7 Total Bilirubin 0.2 AST 20 ALT 33 Alkaline Phosphatase 110 Total Protein 5.3 L Albumin 2.8 L 02/16/18 23:30 Sputum Gram Stain - Final 02/16/18 23:30 Sputum Sputum Culture - Final 02/16/18 02/17/18 02/17/18 19:05 01:02 07:50 Troponin I 0.062 0.056 0.044 NT-Pro-B Natriuret Pep 02/17/18 07:50 Troponin I NT-Pro-B Natriuret Pep 1270 H Impressions: Chest CT 02/16/18 00:00 IMPRESSION: Multicentric pneumonia most prominently involving the right lower lobe. Mild mediastinal adenopathy. Chest X-Ray 02/16/18 14:21 IMPRESSION: Chronic bandlike scarring right mid lung New alveolar and interstitial infiltrates at both lung bases, worrisome for alveolar and interstitial edema. Pneumonia could not entirely be excluded Assessment & Plan - Diagnosis (1) Sepsis Qualifiers: Sepsis type: sepsis due to unspecified organism Qualified Code(s): A41.9 - Sepsis, unspecified organism Is this a current diagnosis for this admission?: Yes Plan: Febrile, respiratory rate, tachypnea, identified source Secondary to Nosocomial Pneumonia: Vancomycin and Cefepime. Will continue Tamiflu. (2) Acute on chronic diastolic congestive heart failure Is this a current diagnosis for this admission?: Yes Plan: We will continue Lasix. Patient BMP noted to be 1270. Patient with evidence of lower extremity edema at time of admission (3) Pulmonary hypertension Is this a current diagnosis for this admission?: Yes Plan: Moderate pulmonary hypertension: Continue with current treatment. (4) Pneumonia Is this a current diagnosis for this admission?: Yes Plan: We will continue vancomycin and cefepime. Patient placed on Bactrim for PCP (5) Acute respiratory failure with hypoxia Is this a current diagnosis for this admission?: Yes Plan: Pulmonary Consulted. Patient on 5 L nasal cannula. We will continue patient on antibiotics. (6) Dyspnea Is this a current diagnosis for this admission?: Yes Plan: Acute on chronic secondary to interstitial lung disease: Patient's 2D echo demonstrates pulmonary hypertension moderate and BMP slightly elevated. Patient 's dyspnea is multifactorial. Patient will continue on current Lasix regimen. (7) Interstitial pneumonia Is this a current diagnosis for this admission?: Yes Plan: Interstitial Pneumonitis: Will continue current antibiotics. Will continue bactrim for PCP (8) Morbid obesity Is this a current diagnosis for this admission?: Yes Plan: Encourage dietary changes. (9) Hypokalemia Is this a current diagnosis for this admission?: Yes Plan: Resolved. (10) Diabetes Qualifiers: Diabetes mellitus type: type 2 Diabetes mellitus group home insulin use: unspecified group home insulin use status Diabetes mellitus complication status : with unspecified complications Qualified Code(s): E11.8 - Type 2 diabetes mellitus with unspecified complications Is this a current diagnosis for this admission?: Yes Plan: Will continue on SSI. (11) DVT prophylaxis Is this a current diagnosis for this admission?: Yes Plan: SCDs
[2018-02-18] MEDS: GABAPENTIN 300 MG CAPSULE PO SCH (11:32)
[2018-02-18] MEDS: FERROUS SULFATE 325 MG TABLET PO SCH (11:32)
--- NOTE | 2018-02-18 14:10 | PDOC PROGRESS REPORT ---
Subjective Progress Note for:: 02/18/18 Subjective:: Patient seems to be doing better with gradual improvement. Pt is denying any chest arm or neck discomfort. Patient denying any PND, orthopnea. Patient denied any sustained palpitations, dizziness, syncope, near syncope. Patient denying any fever chills. Patient denying any other significant discomfort. Patient is maintaining sinus rhythm. Review of systems: Rest review of systems negative. Medications: Medications have been reviewed. Reason For Visit: ACUTE AND CHRONIC HYPOXIC RESPIRATORY FAILURE, Physical Exam Vital Signs: Temp Pulse Resp BP Pulse Ox 98.0 F 100 24 H 152/72 H 91 L 02/18/18 12:00 02/18/18 12:00 02/18/18 12:00 02/18/18 12:00 02/18/18 12:00 Intake & Output 02/17/18 02/18/18 02/19/18 06:59 06:59 06:59 Intake Total 700 2197 Output Total 850 3000 Balance -150 -803 Weight 111.9 kg 111.8 kg Exam: GENERAL: well-nourished and in no acute distress. Alert and oriented x3 HEAD: Atraumatic, normocephalic. EYES: Pupils equal round and reactive to light, extraocular movements intact, sclera anicteric, conjunctiva are normal. ENT: TMs normal, nares patent, oropharynx clear without exudates. Moist mucous membranes. No oral ulcerations or bleeding gums noted NECK: supple without lymphadenopathy. Trachea is central. No cervical or axillary lymphadenopathy noted. Carotids are 2+, JVD WNL LUNGS: Respiration seems nonlabored, no significant accessory muscle action noted. Bibasilar fine crackles and few a scattered wheezes rales or rhonchi noted. No significant dullness noted on percussion. CHEST: Palpation of the chest wall shows no significant chest wall tenderness. No other significant abnormalities noted. 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 ABDOMEN: Soft, no significant tenderness appreciated, normoactive bowel sounds. No guarding, no rebound. No rigidity noted . No masses appreciated. EXTREMITIES: Pedal pulses are 1-2+, no calf tenderness noted. No clubbing or cyanosis.1+ pedal edema noted NEUROLOGICAL: Focused neurological exam showed no significant neurologic deficit. Normal speech, no focal weakness appreciated. PSYCH: Normal mood, normal affect. Judgment and insight within normal limits. SKIN: No significant ecchymosis, skin is noted to be warm. MUSCULOSKELETAL EXAM: No significant acute joint swelling noted. Results Laboratory Results: 02/18/18 03:55 02/18/18 03:55 02/18/18 02/18/18 03:55 03:55 WBC 14.1 H RBC 3.21 L Hgb 8.6 L Hct 26.2 L MCV 82 MCH 26.9 L MCHC 32.9 RDW 15.3 H Plt Count 403 Seg Neutrophils % Not Reportable Lymphocytes % Not Reportable Monocytes % Not Reportable Eosinophils % Not Reportable Basophils % Not Reportable Absolute Neutrophils Not Reportable Absolute Lymphocytes Not Reportable Absolute Monocytes Not Reportable Absolute Eosinophils Not Reportable Absolute Basophils Not Reportable Sodium 140.5 Potassium 3.7 Chloride 106 Carbon Dioxide 21 L Anion Gap 14 BUN 14 Creatinine 0.87 Est GFR ( Amer) > 60 Est GFR (Non-Af Amer) > 60 Glucose 136 H Calcium 8.7 Total Bilirubin 0.2 AST 20 ALT 33 Alkaline Phosphatase 110 Total Protein 5.3 L Albumin 2.8 L 02/16/18 23:30 Sputum Gram Stain - Final 02/16/18 23:30 Sputum Sputum Culture - Final 02/16/18 02/17/18 02/17/18 19:05 01:02 07:50 Troponin I 0.062 0.056 0.044 NT-Pro-B Natriuret Pep 02/17/18 07:50 Troponin I NT-Pro-B Natriuret Pep 1270 H EKG Comments: Shows sinus rhythm, possible RVH, minor nonspecific ST segment changes noted Impressions: Chest CT 02/16/18 00:00 IMPRESSION: Multicentric pneumonia most prominently involving the right lower lobe. Mild mediastinal adenopathy. Chest X-Ray 02/16/18 14:21 IMPRESSION: Chronic bandlike scarring right mid lung New alveolar and interstitial infiltrates at both lung bases, worrisome for alveolar and interstitial edema. 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 insulin use: unspecified long-term insulin use status Diabetes mellitus complication status : with unspecified complications Qualified Code(s): E11.8 - Type 2 diabetes mellitus with unspecified complications Is this a current diagnosis for this admission?: Yes (3) Interstitial pneumonia Is this a current diagnosis for this admission?: Yes (4) CHF (congestive heart failure) Qualifiers: Heart failure type: right-sided Heart failure chronicity: acute on chronic Qualified Code(s): I50.813 - Acute on chronic right heart failure Is this a current diagnosis for this admission?: Yes (5) Elevated troponin I level Is this a current diagnosis for this admission?: Yes - Notes Notes: Acute respiratory failure: Improved. Patient on some nasal cannula oxygen supplementation. Most likely related to pneumonia and institution lungs disease. Continue with antibiotic therapy, oxygenation, may consider bilevel therapy etc. CHF: Patient felt to have right-sided CHF. Improved. JVP seems down. Patient has peripheral edema, improved. Continue current diuretic therapy. Interstitial pneumonia: Patient on antibiotic therapy [facility] and also hospitalist here. Diabetes: Continue current management plans. Elevated troponin I: Most likely related to hypoxemia and pneumonia. Do not feel patient has acute coronary syndrome. - Time Time with patient: 15-25 minutes - CODE STATUS was discussed, patient remains full code. Surrogate decision-maker unchanged. Multiple medical problems were addressed. More than 50% of the time spent coordinating care, discussing management plans with involved caregivers. Management plans discussed with involved personnels. Medical decision making was of moderate to high complexity , patient's has multiple comorbidities. Medications reviewed and adjusted accordingly: Yes
--- NOTE | 2018-02-18 15:05 | Physician Advisory Note ---
Physician Advisor ProgressNote .: Pursuant to the plan for [facility], I have reviewed the medical record for this patient. Physician Advisor Statement: Please document, if you agree: 1. "Pneumonia, present on admission, likely due to gram-neg organism or MRSA*; Healthcare-acquired, NOT 'nosocomial' pneumonia" vs. "Nosocomial Pneumonia, likely due to gram-neg organism or MRSA*, not present on admission but due to this hospitalization". (See definitions below) *[or what it is that is being tx'd with the vanc & cefepime] 2. "Chronic Hypoxemic Respiratory Failure due to , requiring 2-3L O2 nc at baseline" 3. Chronic dz being tx'd with CellCept & steroids: - "Chronic Interstitial Pneumonitis, caused by "? - "Chronic Interstitial Lung Dz, caused by " ? - or "of unknown cause"? Please be very precise when using any of these terms: A. Community-Acquired Pneumonia (CAP) = present on admission, usual community pathogens. B. HEALTHCARE-ACQUIRED pneumonia (HCAP) = due to recent contact w/ healthcare setting, typically present on admission. C. HOSPITAL-ACQUIRED pneumonia (HAP) (= also called "nosocomial PNA") = NOT present at time of this admission. Developed 48+ hours after admission (or causing readmission within 48 hours). CAUSED BY THIS ADMISSION. D. "Ventilator-Associated pneumonia (VAP) = NOT present at time of this admission. Developed after patient intubated for >48 hours, or within 48 hours of extubation. CAUSED BY THIS ADMISSION. (If patient may have aspirated before or during intubation and the aspiration pneumonia appearance on CXR is delayed for 1-2 days, please clarify this so it is not misclassified as VAP.) Thanks! CK
[2018-02-18] MEDS ORDERED: PHENOL/SODIUM PHENOLATE 100 SPRAY/177 ML BOTTLE PO PRN (19:35)
[2018-02-18] MEDS: INSULIN GLARGINE,HUM.REC.ANLOG 300 UNIT/3 ML INSULN.PEN SUBCUT SCH (22:18)
[2018-02-18] MEDS: INSULIN LISPRO 100 UNIT/ML 3 ML VIAL SUBCUT PRN (22:20)
[2018-02-18] MEDS: MONTELUKAST SODIUM 10 MG TABLET PO SCH (22:27)
[2018-02-18] MEDS: FLUOXETINE HCL 20 MG CAPSULE PO SCH (22:27)
[2018-02-19] MEDS: VANCOMYCIN HCL 1,250 MG in DEXTROSE 5%-WATER 250 ML IV SCH ×4 (01:28→22:53)
[2018-02-19] MEDS: SULFAMETHOXAZOLE/TRIMETHOPRIM 800-160 MG TABLET PO SCH ×4 (04:19→21:31)
[2018-02-19] MEDS: ALBUTEROL SULFATE 0.083% NEB 2.5 MG/3 ML AMPUL NEB PRN ×2 (04:27→14:43)
[2018-02-19 05:09] LABS: ABSOLUTE LYMPHOCYTES (AUTO) 1.6 10^3/uL (0.5-4.7); ABSOLUTE MONOCYTES (AUTO) 1.4 10^3/uL (0.1-1.4); ABSOLUTE NEUT (AUTO) 10.8 10^3/uL (1.7-8.2); BASOPHILS % (AUTO) 0.1 % (0-2); EOSINOPHILS % (AUTO) 0.1 % (0-6); HEMATOCRIT 28.9 % (37.9-51.0); HEMOGLOBIN 9.4 g/dL (13.5-17.0); LYMPHOCYTES % (AUTO) 11.6 % (13-45); MEAN CORPUSCULAR HEMOGLOBIN 26.2 pg (27.0-33.4); MEAN CORPUSCULAR HGB CONC 32.5 g/dL (32.0-36.0); MEAN CORPUSCULAR VOLUME 81 fl (80-97); MONOCYTES % (AUTO) 10.1 % (3-13); PLATELET COUNT 504 10^3/uL (150-450); RED BLOOD COUNT 3.59 10^6/uL (4.35-5.55); RED CELL DISTRIBUTION WIDTH 15.8 % (11.5-14.0); SEGMENTED NEUTROPHILS % (AUTO) 78.1 % (42-78); TOTAL CELLS COUNTED % (AUTO) 100 %; WHITE BLOOD COUNT 13.8 10^3/uL (4.0-10.5)
[2018-02-19] MEDS: LANSOPRAZOLE 30 MG TAB.RAP.DR PO SCH (05:32)
[2018-02-19 05:34] LABS: ALANINE AMINOTRANSFERASE 34 U/L (21-72); ALBUMIN 3.2 g/dL (3.5-5.0); ALKALINE PHOSPHATASE 108 U/L (38-126); ANION GAP 16 (5-19); ASPARTATE AMINO TRANSFERASE 21 U/L (17-59); BILIRUBIN,DIRECT 0.2 mg/dL (0.0-0.4); BILIRUBIN,TOTAL 0.2 mg/dL (0.2-1.3); BLOOD UREA NITROGEN 17 mg/dL (7-20); CALCIUM 9.1 mg/dL (8.4-10.2); CARBON DIOXIDE 22 mmol/L (22-30); CHLORIDE 103 mmol/L (98-107); GLUCOSE 102 mg/dL (75-110); POTASSIUM 3.7 mmol/L (3.6-5.0); SODIUM 141.1 mmol/L (137-145); TOTAL PROTEIN 5.9 g/dL (6.3-8.2)
[2018-02-19 06:44] LABS: ARTERIAL BLOOD BASE EXCESS -2.2 mmol/L; ARTERIAL BLOOD HCO3 22.2 mmol/L (20-26); ARTERIAL BLOOD O2 SATURATION 96.1 % (94-98); ARTERIAL BLOOD PCO2 36.6 mmHg (35-45); ARTERIAL BLOOD PO2 81.7 mmHg (80-100); ARTERIAL BLOOD TOTAL CO2 23.3 mmol/L (23-27)
[2018-02-19 06:45] LABS: ARTERIAL BLOOD FIO2 5L
--- NOTE | 2018-02-19 07:14 | RADIOLOGY REPORT (SQ) ---
EXAM DESCRIPTION: CHEST SINGLE VIEW CLINICAL HISTORY: pna COMPARISON: 02/16/2018 FINDINGS: Single frontal view of the chest. Tortuosity of thoracic aorta. Cardiomegaly. Stable bibasilar and right midlung airspace opacity. Bilateral interstitial opacities. No pneumothorax identified. Leads overlie the chest. No definite pleural effusion. No displaced rib fractures identified. Upper abdominal soft tissues are unremarkable. IMPRESSION: 1. Stable appearance of the chest with bibasilar interstitial and alveolar opacities.
[2018-02-19] MEDS: INSULIN LISPRO 100 UNIT/ML 3 ML VIAL SUBCUT SCH ×3 (07:51→17:32)
[2018-02-19] MEDS: FLUTICASONE NASAL SPRAY 50 MCG/SPRY 120 SPRAY/16 GM NASL SCH (07:52)
--- NOTE | 2018-02-19 07:53 | PDOC PROGRESS REPORT ---
Subjective Progress Note for:: 02/19/18 Subjective:: Patient states that he feels more short of breath this morning. Patient states that when he lays down he starts coughing more because of nasal drainage. Patient states that nasal discharge is green in color. Patient reports that he does not understand why he is having some his nasal drainage given the fact that he is on all these antibiotics. Explained to patient that patient's upper respiratory symptoms could be secondary to viral illness. Phone conversation was held with [facility] physician Dr. Landy Lane who states that she will speak with Dr. Mazariegos about where to place patient at [facility]. Reason For Visit: ACUTE AND CHRONIC HYPOXIC RESPIRATORY FAILURE, Physical Exam Vital Signs: Temp Pulse Resp BP Pulse Ox 97.6 F 92 23 H 156/80 H 92 02/19/18 04:00 02/19/18 04:35 02/19/18 06:00 02/19/18 04:17 02/19/18 06:00 Intake & Output 02/18/18 02/19/18 02/20/18 06:59 06:59 06:59 Intake Total 2197 1059 Output Total 3000 2030 Balance -803 -971 Weight 111.8 kg General appearance: PRESENT: mild distress, well-developed, well-nourished Head exam: PRESENT: atraumatic, normocephalic Eye exam: PRESENT: conjunctiva pink, EOMI. ABSENT: scleral icterus Ear exam: PRESENT: normal external ear exam Mouth exam: PRESENT: moist, tongue midline Neck exam: ABSENT: carotid bruit, JVD, lymphadenopathy, thyromegaly Respiratory exam: PRESENT: accessory muscle use, decreased breath sounds, prolonged expiratory phas, wheezes Cardiovascular exam: PRESENT: RRR. ABSENT: diastolic murmur, rubs, systolic murmur Pulses: PRESENT: normal dorsalis pedis pul Vascular exam: PRESENT: normal capillary refill GI/Abdominal exam: PRESENT: normal bowel sounds, soft. ABSENT: distended, guarding, mass, organolmegaly, rebound, tenderness Rectal exam: PRESENT: deferred Extremities exam: ABSENT: calf tenderness, clubbing, pedal edema Neurological exam: PRESENT: alert, awake, oriented to person, oriented to place , oriented to time, oriented to situation, CN II-XII grossly intact. ABSENT: motor sensory deficit Psychiatric exam: PRESENT: agitated Skin exam: PRESENT: dry, intact, warm. ABSENT: cyanosis, rash Results Laboratory Results: 02/19/18 04:48 02/19/18 04:48 02/19/18 02/19/18 02/19/18 04:48 04:48 06:20 WBC 13.8 H RBC 3.59 L Hgb 9.4 L Hct 28.9 L MCV 81 MCH 26.2 L MCHC 32.5 RDW 15.8 H Plt Count 504 H Seg Neutrophils % 78.1 H Lymphocytes % 11.6 L Monocytes % 10.1 Eosinophils % 0.1 Basophils % 0.1 Absolute Neutrophils 10.8 H Absolute Lymphocytes 1.6 Absolute Monocytes 1.4 Absolute Eosinophils 0.0 Absolute Basophils 0.0 Carbonic Acid 1.10 HCO3/H2CO3 Ratio 20:1 ABG pH 7.40 ABG pCO2 36.6 ABG pO2 81.7 ABG HCO3 22.2 ABG O2 Saturation 96.1 ABG Base Excess -2.2 FiO2 5L Sodium 141.1 Potassium 3.7 Chloride 103 Carbon Dioxide 22 Anion Gap 16 BUN 17 Creatinine 1.02 Est GFR ( Amer) > 60 Est GFR (Non-Af Amer) > 60 Glucose 102 Calcium 9.1 Magnesium 1.8 Total Bilirubin 0.2 AST 21 ALT 34 Alkaline Phosphatase 108 Total Protein 5.9 L Albumin 3.2 L 02/16/18 02/17/18 02/17/18 19:05 01:02 07:50 Troponin I 0.062 0.056 0.044 NT-Pro-B Natriuret Pep 02/17/18 07:50 Troponin I NT-Pro-B Natriuret Pep 1270 H Impressions: Chest CT 02/16/18 00:00 IMPRESSION: Multicentric pneumonia most prominently involving the right lower lobe. Mild mediastinal adenopathy. Chest X-Ray 02/19/18 06:00 IMPRESSION: 1. Stable appearance of the chest with bibasilar interstitial and alveolar opacities. Assessment & Plan - Diagnosis (1) Sepsis Qualifiers: Sepsis type: sepsis due to unspecified organism Qualified Code(s): A41.9 - Sepsis, unspecified organism Is this a current diagnosis for this admission?: Yes Plan: Febrile, respiratory rate, tachypnea, identified source Secondary to Nosocomial Pneumonia: Vancomycin and Cefepime. Will continue Tamiflu. (2) Acute on chronic diastolic congestive heart failure Is this a current diagnosis for this admission?: Yes Plan: Will give patient 40 mg of IV Lasix today. Will monitor urine output. Will also continue patient's 20 mg of Lasix p.o. (3) Pulmonary hypertension Is this a current diagnosis for this admission?: Yes Plan: Moderate pulmonary hypertension: Continue with current treatment. (4) Pneumonia Is this a current diagnosis for this admission?: Yes Plan: We will continue vancomycin and cefepime. Patient placed on Bactrim for PCP (5) Acute respiratory failure with hypoxia Is this a current diagnosis for this admission?: Yes Plan: Pulmonary Consulted. Patient on 5 L nasal cannula. We will continue patient on antibiotics. (6) Dyspnea Is this a current diagnosis for this admission?: Yes Plan: Acute on chronic secondary to interstitial lung disease: Patient's 2D echo demonstrates pulmonary hypertension moderate and BMP slightly elevated. Patient 's dyspnea is multifactorial. Will give IV Lasix. (7) Interstitial pneumonia Is this a current diagnosis for this admission?: Yes Plan: Interstitial Pneumonitis: Will continue current antibiotics. Will continue bactrim for PCP (8) Morbid obesity Is this a current diagnosis for this admission?: Yes Plan: Encourage dietary changes. (9) Hypokalemia Is this a current diagnosis for this admission?: Yes Plan: Resolved. 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 (11) DVT prophylaxis Is this a current diagnosis for this admission?: Yes Plan: SCDs - Time Time Spent with patient: 25-34 minutes
[2018-02-19] MEDS: TIOTROPIUM BROMIDE DPI 5 CAP/KIT (18 MCG/CAP) IH SCH (07:55)
[2018-02-19] MEDS: MYCOPHENOLATE MOFETIL 250 MG CAPSULE PO SCH ×2 (07:58→21:33)
[2018-02-19] MEDS: BACLOFEN 10 MG TABLET PO SCH ×2 (07:59→17:22)
[2018-02-19] MEDS: OSELTAMIVIR PHOSPHATE 75 MG CAPSULE PO SCH ×2 (07:59→17:22)
[2018-02-19] MEDS: METHYLPREDNISOLONE INJ 40 MG/1 ML SDV IV SCH (08:01)
[2018-02-19] MEDS ORDERED: FUROSEMIDE INJ/PF 40 MG/4 ML SDV IV ONE (08:30)
[2018-02-19] MEDS: FUROSEMIDE 20 MG TABLET PO SCH (09:22)
[2018-02-19] MEDS: CEFEPIME 1 GM/D5W RTU 1 GM/50 ML RTUPB IV SCH ×2 (09:25→21:31)
[2018-02-19] MEDS ORDERED: DIPHENHYDRAMINE HCL 50 MG CAPSULE PO PRN (10:31)
[2018-02-19] MEDS: GABAPENTIN 300 MG CAPSULE PO SCH (12:23)
[2018-02-19] MEDS: FERROUS SULFATE 325 MG TABLET PO SCH (12:23)
[2018-02-19 12:41] LABS: VANCOMYCIN,TROUGH 24.1 ug/mL (5.0-20.0)
[2018-02-19] MEDS: BENZONATATE 100 MG CAPSULE PO PRN ×2 (15:12→21:32)
--- NOTE | 2018-02-19 18:39 | PDOC DISCHARGE SUMMARY ---
General - Admit/Disc Date/PCP Admission Date/Primary Care Provider: 02/16/18 15:29 Discharge Date: 02/19/18 - Discharge Diagnosis (1) Sepsis Is this a current diagnosis for this admission?: Yes Summary: (Fever, respiratory rate, tachypnea, and presumed nosocomial acquired pneumonia : We will continue vancomycin, cefepime and Bactrim. Patient is currently on Tamiflu for possible flu exposure per recommendations of [facility]. We are unable to test for influenza. (2) Pulmonary hypertension Is this a current diagnosis for this admission?: Yes (3) Acute on chronic diastolic congestive heart failure Is this a current diagnosis for this admission?: Yes Summary: Patient was given IV Lasix and diuresed well during hospital stay. Patient's urine output with IV Lasix has been anywhere from 2-3 L of urine. (4) Pneumonia Is this a current diagnosis for this admission?: Yes Summary: Presumed nosocomial acquired pneumonia: We will continue vancomycin and cefepime. Patient is on Bactrim for PCP treatment. This is under the direction of [facility]. (5) Acute respiratory failure with hypoxia Is this a current diagnosis for this admission?: Yes Summary: In setting of chronic hypersensitivity pneumonitis: Patient is continued to require 5 L of nasal cannula (6) Dyspnea Is this a current diagnosis for this admission?: Yes Summary: In setting of chronic hypersensitivity pneumonitis and presumed nosocomial acquired pneumonia: Patient has been continued on home medications, antibiotics , and IV steroids (7) Morbid obesity Is this a current diagnosis for this admission?: Yes (8) Hypokalemia Is this a current diagnosis for this admission?: Yes Summary: Resolved. (9) Diabetes Is this a current diagnosis for this admission?: Yes Summary: She has been maintained on sliding scale insulin and long-acting insulin. (10) Chronic hypersensitivity pneumonitis Is this a current diagnosis for this admission?: Yes Summary: Secondary to patient not responding to outpatient treatment plan: Pt continued on CellCept. Patient currently on 40 mg of Solu-Medrol daily. Patient awaiting transfer to [facility] for further recommendations and treatment plan. (11) DVT prophylaxis Is this a current diagnosis for this admission?: Yes Summary: SCDs - Additional Information Resuscitation Status: Do Not Resuscitate Home Medications: Albuterol Sulfate [Proair HFA] 2 puff IH Q4HP PRN 02/16/18 Baclofen [Baclofen 10 mg Tablet] 10 mg PO BID 02/16/18 Ferrous Sulfate [Iron] 325 mg PO NOON 02/16/18 Fluoxetine HCl [Prozac 20 mg Capsule] 20 mg PO QHS 02/16/18 Fluticasone Propionate [Flonase Allergy Relief] 2 spray NASL DAILY 02/16/18 Furosemide [Lasix 20 mg Tablet] 20 mg PO QAM 02/16/18 Gabapentin [Neurontin] 300 mg PO NOON 02/16/18 Insulin Aspart [Novolog Flexpen] 20 unit SUBCUT BIDACBL 02/16/18 Insulin Aspart [Novolog Flexpen] 22 unit SUBCUT WSUPPER 02/16/18 Insulin Glargine,Hum.rec.anlog [Lantus Insulin 100 Unit/mL] 24 unit SUBCUT QHS 02/16/18 Metformin HCl [Metformin HCl ER] 1,000 mg PO BID 02/16/18 Montelukast Sodium [Singulair 10 mg Tablet] 10 mg PO QHS 02/16/18 Mycophenolate Mofetil [Cellcept 250 mg Capsule] 1,000 mg PO Q12 02/16/18 Pantoprazole Sodium [Protonix] 40 mg PO BID 02/16/18 Pravastatin Sodium [Pravachol] 20 mg PO QHS 02/16/18 Prednisone [Deltasone 10 mg Tablet] 10 mg PO NOON 02/16/18 Sulfamethoxazole/Trimethoprim [Bactrim 400-80 mg Tablet] 2 tab PO MOWEFR@1000 Tiotropium [place] [Spiriva Handihaler 18 mcg/dose (30 Dose)] 1 cap IH DAILY History of Present Illness Patient complains of: Shortness of breath History of Present Illness: MARILYNN GARCÍA is a 62 year old male presents to hospital with complaint of shortness of breath and cough for the last several days. reports that patient was seen at [facility] by Dr. Kent who placed patient on CellCept and decrease patient's steroids. Patient states that by the end of November he began having more respiratory issues. reports that patient's breathing continued to worsen into December and recently they came to the emergency room for evaluation. reports that they were told that was most likely due to allergies and patient was sent home from the emergency department. Family represented today because of patient not feeling better. also reported that patient has been febrile at home. reports that temperature has been from 100.2F -103.6. Pt states that sat decreased to 75% with exertion. Conference call was held with the ER hospitalist and [facility] pulmonary service who recommended that patient be transferred to their facility but due to them being on diversion recommended that patient stay here in our hospital until bed is available. [facility] pulmonary doctor Grace recommended that patient be placed on Bactrim for PCP treatment, steroids, and continue with current antibiotics. Hospital Course Hospital Course: Patient 62-year-old gentleman that presented to our facility with complaint of shortness of breath. states that in November patient's steroids were decreased and patient was placed on CellCept reports that patient's breathing to the end of November throughout December had continued to worsen. reports that patient's breathing has gotten to a point where patient is not able to function at home. When patient arrived in the emergency room he was noted to have O2 sat on room air of 75%. Patient had very coarse breath sounds heard in all lung alaniz. Patient CT of chest demonstrated multicentric pneumonia affecting primarily the right lower lobe. Spoke to [facility] which is where patient receives his care from Dr. Kent whose attending was able to give assistance with patient's care. Recommendations were that patient continue on vancomycin and cefepime. Patient was placed on Bactrim for dose treatment of PCP. Due to the fact of us not been able to test for flu it was recommended that patient was placed on treatment dose for flu. Patient did have a 2D echo that demonstrated normal EF but patient was noted to have moderate pulmonary hypertension. Patient was also noted to have +1 pitting edema of lower extremities. Patient was given diuretics twice IV here during hospital stay which resulted and 3 L of urine output for 2 days. Patient was maintained on his home dose of Lasix as well. Patient's breathing did not improve drastically after diuretics. Patient has demonstrated some improvement with breathing when comparing breath sounds from time of admission to now. Patient however reports that his breathing has slightly improved but he still very short of breath. Nursing also documented that patient becomes extremely winded when he gets up out of recliner and gets into bed. Sputum demonstrating gram-negative rods awaiting final ID and sensitivity. Accepting physician will be Dr. Mazariegos or Dr. Landy Lane Physical Exam Vital Signs: Temp Pulse Resp BP Pulse Ox 97.6 F 88 21 H 143/73 H 97 02/19/18 12:00 02/19/18 10:00 02/19/18 14:00 02/19/18 12:33 02/19/18 14:00 Intake & Output 02/18/18 02/19/18 02/20/18 06:59 06:59 06:59 Intake Total 2197 1059 1280 Output Total 3000 2030 3150 Balance -808 -791 -3892 Weight 111.8 kg General appearance: PRESENT: mild distress, morbidly obese, well-developed, well -nourished Head exam: PRESENT: atraumatic, normocephalic Eye exam: PRESENT: conjunctiva pink, EOMI. ABSENT: scleral icterus Ear exam: PRESENT: normal external ear exam Mouth exam: PRESENT: moist, tongue midline Neck exam: ABSENT: carotid bruit, JVD, lymphadenopathy, thyromegaly Respiratory exam: PRESENT: accessory muscle use, decreased breath sounds, prolonged expiratory phas, rales, rhonchi. ABSENT: wheezes Cardiovascular exam: PRESENT: RRR. ABSENT: diastolic murmur, rubs, systolic murmur Pulses: PRESENT: normal dorsalis pedis pul Vascular exam: PRESENT: normal capillary refill GI/Abdominal exam: PRESENT: normal bowel sounds, soft. ABSENT: distended, guarding, mass, organolmegaly, rebound, tenderness Rectal exam: PRESENT: deferred Extremities exam: PRESENT: pedal edema, +1 edema Neurological exam: PRESENT: alert, awake, oriented to person, oriented to place , oriented to time, oriented to situation, CN II-XII grossly intact. ABSENT: motor sensory deficit Psychiatric exam: PRESENT: appropriate affect, normal mood. ABSENT: homicidal ideation, suicidal ideation Skin exam: PRESENT: dry, intact, warm. ABSENT: cyanosis, rash Results Laboratory Results: 02/19/18 04:48 02/19/18 11:43 02/19/18 02/19/18 02/19/18 04:48 04:48 06:20 WBC 13.8 H RBC 3.59 L Hgb 9.4 L Hct 28.9 L MCV 81 MCH 26.2 L MCHC 32.5 RDW 15.8 H Plt Count 504 H Seg Neutrophils % 78.1 H Lymphocytes % 11.6 L Monocytes % 10.1 Eosinophils % 0.1 Basophils % 0.1 Absolute Neutrophils 10.8 H Absolute Lymphocytes 1.6 Absolute Monocytes 1.4 Absolute Eosinophils 0.0 Absolute Basophils 0.0 Carbonic Acid 1.10 HCO3/H2CO3 Ratio 20:1 ABG pH 7.40 ABG pCO2 36.6 ABG pO2 81.7 ABG HCO3 22.2 ABG O2 Saturation 96.1 ABG Base Excess -2.2 FiO2 5L Sodium 141.1 Potassium 3.7 Chloride 103 Carbon Dioxide 22 Anion Gap 16 BUN 17 Creatinine 1.02 Est GFR ( Amer) > 60 Est GFR (Non-Af Amer) > 60 Glucose 102 Calcium 9.1 Magnesium 1.8 Total Bilirubin 0.2 AST 21 ALT 34 Alkaline Phosphatase 108 Total Protein 5.9 L Albumin 3.2 L 02/19/18 11:43 WBC RBC Hgb Hct MCV MCH MCHC RDW Plt Count Seg Neutrophils % Lymphocytes % Monocytes % Eosinophils % Basophils % Absolute Neutrophils Absolute Lymphocytes Absolute Monocytes Absolute Eosinophils Absolute Basophils Carbonic Acid HCO3/H2CO3 Ratio ABG pH ABG pCO2 ABG pO2 ABG HCO3 ABG O2 Saturation ABG Base Excess FiO2 Sodium Potassium Chloride Carbon Dioxide Anion Gap BUN Creatinine 1.15 Est GFR ( Amer) > 60 Est GFR (Non-Af Amer) > 60 Glucose Calcium Magnesium Total Bilirubin AST ALT Alkaline Phosphatase Total Protein Albumin 02/16/18 02/17/18 02/17/18 19:05 01:02 07:50 Troponin I 0.062 0.056 0.044 NT-Pro-B Natriuret Pep 02/17/18 07:50 Troponin I NT-Pro-B Natriuret Pep 1270 H Impressions: Chest CT 02/16/18 00:00 IMPRESSION: Multicentric pneumonia most prominently involving the right lower lobe. Mild mediastinal adenopathy. Chest X-Ray 02/19/18 06:00 IMPRESSION: 1. Stable appearance of the chest with bibasilar interstitial and alveolar opacities. Qualifiers - * PATEINT BEING DISCHARGED WITH ANY OF THE FOLLOWING DIAGNOSIS?: No Plan Time Spent: Greater than 30 Minutes
--- NOTE | 2018-02-19 20:22 | PDOC PROGRESS REPORT ---
Subjective Progress Note for:: 02/19/18 Subjective:: Patient seems to be doing about the same as yesterday. Still awaiting a bed at [facility]. Pt is denying any chest arm or neck discomfort. Patient denying any PND, orthopnea. Patient denied any sustained palpitations, dizziness, syncope, near syncope. Patient denying any fever chills. Patient denying any other significant discomfort. Patient is maintaining sinus rhythm. Review of systems: Rest review of systems negative. Medications: Medications have been reviewed. Reason For Visit: ACUTE AND CHRONIC HYPOXIC RESPIRATORY FAILURE, Physical Exam Vital Signs: Temp Pulse Resp BP Pulse Ox 97.1 F 94 20 143/73 H 95 02/19/18 16:00 02/19/18 19:00 02/19/18 14:43 02/19/18 12:33 02/19/18 14:43 Intake & Output 02/18/18 02/19/18 02/20/18 06:59 06:59 06:59 Intake Total 2197 1059 1600 Output Total 3000 2030 3700 Balance -803 -971 -2100 Weight 111.8 kg Exam: GENERAL: well-nourished and in no acute distress. Alert and oriented x3 HEAD: Atraumatic, normocephalic. EYES: Pupils equal round and reactive to light, extraocular movements intact, sclera anicteric, conjunctiva are normal. ENT: TMs normal, nares patent, oropharynx clear without exudates. Moist mucous membranes. No oral ulcerations or bleeding gums noted NECK: supple without lymphadenopathy. Trachea is central. No cervical or axillary lymphadenopathy noted. Carotids are 2+, JVD WNL LUNGS: Respiration seems nonlabored, bibasilar fine crackles and few a scattered wheezes rales or rhonchi noted. No significant dullness noted on percussion. CHEST: Palpation of the chest wall shows no significant chest wall tenderness. No other significant abnormalities noted. HEART: [employer], No PSH, 1/6 MYA aortic area, 1/6 blood systolic murmur mitral area, no rubs, no gallops. ABDOMEN: Soft, no significant tenderness appreciated, normoactive bowel sounds. No guarding, no rebound. No rigidity noted . No masses appreciated. EXTREMITIES: Pedal pulses are 1-2+, no calf tenderness noted. No clubbing or cyanosis.1+ pedal edema noted NEUROLOGICAL: Focused neurological exam showed no significant neurologic deficit. Normal speech, no focal weakness appreciated. PSYCH: Normal mood, normal affect. Judgment and insight within normal limits. SKIN: No significant ecchymosis, skin is noted to be warm. MUSCULOSKELETAL EXAM: No significant acute joint swelling noted. Results Laboratory Results: 02/19/18 04:48 02/19/18 11:43 02/19/18 02/19/18 02/19/18 04:48 04:48 06:20 WBC 13.8 H RBC 3.59 L Hgb 9.4 L Hct 28.9 L MCV 81 MCH 26.2 L MCHC 32.5 RDW 15.8 H Plt Count 504 H Seg Neutrophils % 78.1 H Lymphocytes % 11.6 L Monocytes % 10.1 Eosinophils % 0.1 Basophils % 0.1 Absolute Neutrophils 10.8 H Absolute Lymphocytes 1.6 Absolute Monocytes 1.4 Absolute Eosinophils 0.0 Absolute Basophils 0.0 Carbonic Acid 1.10 HCO3/H2CO3 Ratio 20:1 ABG pH 7.40 ABG pCO2 36.6 ABG pO2 81.7 ABG HCO3 22.2 ABG O2 Saturation 96.1 ABG Base Excess -2.2 FiO2 5L Sodium 141.1 Potassium 3.7 Chloride 103 Carbon Dioxide 22 Anion Gap 16 BUN 17 Creatinine 1.02 Est GFR ( Amer) > 60 Est GFR (Non-Af Amer) > 60 Glucose 102 Calcium 9.1 Magnesium 1.8 Total Bilirubin 0.2 AST 21 ALT 34 Alkaline Phosphatase 108 Total Protein 5.9 L Albumin 3.2 L 02/19/18 11:43 WBC RBC Hgb Hct MCV MCH MCHC RDW Plt Count Seg Neutrophils % Lymphocytes % Monocytes % Eosinophils % Basophils % Absolute Neutrophils Absolute Lymphocytes Absolute Monocytes Absolute Eosinophils Absolute Basophils Carbonic Acid HCO3/H2CO3 Ratio ABG pH ABG pCO2 ABG pO2 ABG HCO3 ABG O2 Saturation ABG Base Excess FiO2 Sodium Potassium Chloride Carbon Dioxide Anion Gap BUN Creatinine 1.15 Est GFR ( Amer) > 60 Est GFR (Non-Af Amer) > 60 Glucose Calcium Magnesium Total Bilirubin AST ALT Alkaline Phosphatase Total Protein Albumin 02/16/18 02/17/18 02/17/18 19:05 01:02 07:50 Troponin I 0.062 0.056 0.044 NT-Pro-B Natriuret Pep 02/17/18 07:50 Troponin I NT-Pro-B Natriuret Pep 1270 H Impressions: Chest CT 02/16/18 00:00 IMPRESSION: Multicentric pneumonia most prominently involving the right lower lobe. Mild mediastinal adenopathy. Chest X-Ray 02/19/18 06:00 IMPRESSION: 1. Stable appearance of the chest with bibasilar interstitial and alveolar opacities. Assessment & Plan - Diagnosis (1) Acute respiratory failure with hypoxia Is this a current diagnosis for this admission?: Yes (2) Diabetes Qualifiers: Diabetes mellitus type: type 2 Diabetes mellitus halfway insulin use: unspecified long term acute care registered nurse insulin use status Diabetes mellitus complication status : with unspecified complications Qualified Code(s): E11.8 - Type 2 diabetes mellitus with unspecified complications Is this a current diagnosis for this admission?: Yes (3) Interstitial pneumonia Is this a current diagnosis for this admission?: Yes (4) CHF (congestive heart failure) Qualifiers: Heart failure type: right-sided Heart failure chronicity: acute on chronic Qualified Code(s): I50.813 - Acute on chronic right heart failure Is this a current diagnosis for this admission?: Yes (5) Elevated troponin I level Is this a current diagnosis for this admission?: Yes - Notes Notes: Patient generally stable. At this point recommend continue current management plans. Patient currently seems to be stable respiratory osullivan on 4 L of nasal cannula. Acute respiratory failure: Improved. Patient on some nasal cannula oxygen supplementation. Most likely related to pneumonia and interstitial lungs disease. Continue with antibiotic therapy, oxygenation, may consider bilevel therapy etc. CHF: Patient felt to have right-sided CHF. Improved. JVP seems down. Patient has peripheral edema, improved. Continue current diuretic therapy. Interstitial pneumonia: Patient on antibiotic therapy directed by [facility] physicians and also hospitalist here. Diabetes: Continue current management plans. Elevated troponin I: Most likely related to hypoxemia and pneumonia. Do not feel patient has acute coronary syndrome. - Time Time with patient: 15-25 minutes - CODE STATUS was discussed, patient remains full code. Surrogate decision-maker unchanged. Multiple medical problems were addressed. More than 50% of the time spent coordinating care, discussing management plans with involved caregivers. Management plans discussed with involved personnels. Medical decision making was of moderate to high complexity , patient's has multiple comorbidities. Medications reviewed and adjusted accordingly: Yes
[2018-02-19] MEDS: FLUOXETINE HCL 20 MG CAPSULE PO SCH (21:31)
[2018-02-19] MEDS: MONTELUKAST SODIUM 10 MG TABLET PO SCH (21:32)
[2018-02-19] MEDS: INSULIN GLARGINE,HUM.REC.ANLOG 300 UNIT/3 ML INSULN.PEN SUBCUT SCH (21:37)
[2018-02-20 01:39] VITALS: BP 152/72
[2018-02-20] MEDS: SULFAMETHOXAZOLE/TRIMETHOPRIM 800-160 MG TABLET PO SCH ×2 (04:12→08:48)
[2018-02-20] MEDS: BENZONATATE 100 MG CAPSULE PO PRN (04:12)
[2018-02-20 05:30] LABS: ABSOLUTE LYMPHOCYTES (AUTO) 1.5 10^3/uL (0.5-4.7); ABSOLUTE MONOCYTES (AUTO) 1.5 10^3/uL (0.1-1.4); ABSOLUTE NEUT (AUTO) 8.6 10^3/uL (1.7-8.2); BASOPHILS % (AUTO) 0.2 % (0-2); EOSINOPHILS % (AUTO) 0.4 % (0-6); HEMATOCRIT 27.3 % (37.9-51.0); LYMPHOCYTES % (AUTO) 13.2 % (13-45); MEAN CORPUSCULAR HEMOGLOBIN 26.7 pg (27.0-33.4); MEAN CORPUSCULAR HGB CONC 32.9 g/dL (32.0-36.0); MEAN CORPUSCULAR VOLUME 81 fl (80-97); MONOCYTES % (AUTO) 12.8 % (3-13); PLATELET COUNT 523 10^3/uL (150-450); RED BLOOD COUNT 3.37 10^6/uL (4.35-5.55); RED CELL DISTRIBUTION WIDTH 15.5 % (11.5-14.0); SEGMENTED NEUTROPHILS % (AUTO) 73.4 % (42-78); TOTAL CELLS COUNTED % (AUTO) 100 %; WHITE BLOOD COUNT 11.7 10^3/uL (4.0-10.5)
[2018-02-20 05:54] LABS: ALANINE AMINOTRANSFERASE 25 U/L (21-72); ALKALINE PHOSPHATASE 98 U/L (38-126); ANION GAP 12 (5-19); ASPARTATE AMINO TRANSFERASE 19 U/L (17-59); BILIRUBIN,DIRECT 0.2 mg/dL (0.0-0.4); BILIRUBIN,TOTAL 0.2 mg/dL (0.2-1.3); BLOOD UREA NITROGEN 16 mg/dL (7-20); CALCIUM 8.9 mg/dL (8.4-10.2); CARBON DIOXIDE 26 mmol/L (22-30); CHLORIDE 101 mmol/L (98-107); GLUCOSE 96 mg/dL (75-110); POTASSIUM 3.5 mmol/L (3.6-5.0); SODIUM 138.6 mmol/L (137-145); TOTAL PROTEIN 5.5 g/dL (6.3-8.2)
[2018-02-20] MEDS: VANCOMYCIN HCL 1,250 MG in DEXTROSE 5%-WATER 250 ML IV SCH (06:12)
[2018-02-20] MEDS: LANSOPRAZOLE 30 MG TAB.RAP.DR PO SCH (06:12)
[2018-02-20] MEDS: MYCOPHENOLATE MOFETIL 250 MG CAPSULE PO SCH (08:48)
[2018-02-20] MEDS: FUROSEMIDE 20 MG TABLET PO SCH (08:48)
--- NOTE | 2018-02-20 09:03 | PDOC PROGRESS REPORT ---
Subjective Progress Note for:: 02/20/18 Subjective:: Pt states that he is feeling better. Pt states that he has not had any fevers. Pt states that he still is desatting with exertion. Reason For Visit: ACUTE AND CHRONIC HYPOXIC RESPIRATORY FAILURE, Physical Exam Vital Signs: Temp Pulse Resp BP Pulse Ox 97.6 F 86 22 H 152/72 H 100 02/20/18 01:00 02/20/18 07:00 02/20/18 01:00 02/20/18 01:00 02/20/18 01:00 Intake & Output 02/19/18 02/20/18 02/21/18 06:59 06:59 06:59 Intake Total 1059 1840 Output Total 3336 1508 Balance -979 -8759 Weight 71.4 kg General appearance: PRESENT: mild distress, morbidly obese, well-developed, well -nourished Head exam: PRESENT: atraumatic, normocephalic Eye exam: PRESENT: conjunctiva pink, EOMI. ABSENT: scleral icterus Ear exam: PRESENT: normal external ear exam Mouth exam: PRESENT: moist, tongue midline Neck exam: ABSENT: carotid bruit, JVD, lymphadenopathy, thyromegaly Respiratory exam: PRESENT: accessory muscle use, decreased breath sounds, rhonchi. ABSENT: rales, wheezes Cardiovascular exam: PRESENT: RRR. ABSENT: diastolic murmur, rubs, systolic murmur Pulses: PRESENT: normal dorsalis pedis pul Vascular exam: PRESENT: normal capillary refill GI/Abdominal exam: PRESENT: normal bowel sounds, soft. ABSENT: distended, guarding, mass, organolmegaly, rebound, tenderness Rectal exam: PRESENT: deferred Extremities exam: PRESENT: full ROM, other - Teds in place. ABSENT: calf tenderness, clubbing, pedal edema Musculoskeletal exam: PRESENT: full ROM Neurological exam: PRESENT: alert, awake, oriented to person, oriented to place , oriented to time, oriented to situation, CN II-XII grossly intact. ABSENT: motor sensory deficit Psychiatric exam: PRESENT: appropriate affect, normal mood. ABSENT: homicidal ideation, suicidal ideation Skin exam: PRESENT: dry, intact, warm. ABSENT: cyanosis, rash Results Laboratory Results: 02/20/18 05:12 02/20/18 05:12 02/19/18 02/20/18 02/20/18 11:43 05:12 05:12 WBC 11.7 H RBC 3.37 L Hgb 9.0 L Hct 27.3 L MCV 81 MCH 26.7 L MCHC 32.9 RDW 15.5 H Plt Count 523 H Seg Neutrophils % 73.4 Lymphocytes % 13.2 Monocytes % 12.8 Eosinophils % 0.4 Basophils % 0.2 Absolute Neutrophils 8.6 H Absolute Lymphocytes 1.5 Absolute Monocytes 1.5 H Absolute Eosinophils 0.0 Absolute Basophils 0.0 Sodium 138.6 Potassium 3.5 L Chloride 101 Carbon Dioxide 26 Anion Gap 12 BUN 16 Creatinine 1.15 1.05 Est GFR ( Amer) > 60 > 60 Est GFR (Non-Af Amer) > 60 > 60 Glucose 96 Calcium 8.9 Magnesium 1.8 Total Bilirubin 0.2 AST 19 ALT 25 Alkaline Phosphatase 98 Total Protein 5.5 L Albumin 3.0 L 02/16/18 02/17/18 02/17/18 19:05 01:02 07:50 Troponin I 0.062 0.056 0.044 NT-Pro-B Natriuret Pep 02/17/18 07:50 Troponin I NT-Pro-B Natriuret Pep 1270 H Impressions: Chest CT 02/16/18 00:00 IMPRESSION: Multicentric pneumonia most prominently involving the right lower lobe. Mild mediastinal adenopathy. Chest X-Ray 02/19/18 06:00 IMPRESSION: 1. Stable appearance of the chest with bibasilar interstitial and alveolar opacities. Assessment & Plan - Diagnosis (1) Sepsis Qualifiers: Sepsis type: sepsis due to unspecified organism Qualified Code(s): A41.9 - Sepsis, unspecified organism Is this a current diagnosis for this admission?: Yes Plan: Febrile, respiratory rate, tachypnea, identified source Secondary to Nosocomial Pneumonia: Vancomycin and Cefepime. Will continue Tamiflu. (2) Pulmonary hypertension Is this a current diagnosis for this admission?: Yes Plan: Moderate pulmonary hypertension: Will give additional dose of Lasix 20 mg IV X 1. (3) Acute on chronic diastolic congestive heart failure Is this a current diagnosis for this admission?: Yes Plan: Will give lasix 20 mg IV X 1. Will check CXR. (4) Pneumonia Is this a current diagnosis for this admission?: Yes Plan: We will continue vancomycin and cefepime. Patient placed on Bactrim for PCP (5) Acute respiratory failure with hypoxia Is this a current diagnosis for this admission?: Yes Plan: Pulmonary Consulted. Patient on 5 L nasal cannula. We will continue patient on antibiotics. (6) Dyspnea Is this a current diagnosis for this admission?: Yes Plan: Acute on chronic secondary to interstitial lung disease: Patient's 2D echo demonstrates pulmonary hypertension moderate and BMP slightly elevated. Patient 's dyspnea is multifactorial. Will give IV Lasix again today. (7) Morbid obesity Is this a current diagnosis for this admission?: Yes Plan: Encourage dietary changes. (8) Hypokalemia Is this a current diagnosis for this admission?: Yes Plan: Will give Potassium 40mEq PO X 1. (9) Diabetes Qualifiers: Diabetes mellitus type: type 2 Diabetes mellitus medical terminologist insulin use: unspecified shelter insulin use status Diabetes mellitus complication status : with unspecified complications Qualified Code(s): E11.8 - Type 2 diabetes mellitus with unspecified complications Is this a current diagnosis for this admission?: Yes Plan: Will continue on SSI. (10) Chronic hypersensitivity pneumonitis Is this a current diagnosis for this admission?: Yes Plan: Will continue Cellcept and Steroids. (11) DVT prophylaxis Is this a current diagnosis for this admission?: Yes Plan: SCDs - Time Time Spent with patient: 15-24 minutes
[2018-02-20] MEDS: TIOTROPIUM BROMIDE DPI 5 CAP/KIT (18 MCG/CAP) IH SCH (09:49)
[2018-02-20] MEDS: METHYLPREDNISOLONE INJ 40 MG/1 ML SDV IV SCH (09:49)
[2018-02-20] MEDS: FLUTICASONE NASAL SPRAY 50 MCG/SPRY 120 SPRAY/16 GM NASL SCH (09:49)
[2018-02-20] MEDS: INSULIN LISPRO 100 UNIT/ML 3 ML VIAL SUBCUT SCH (09:49)
[2018-02-20] MEDS: BACLOFEN 10 MG TABLET PO SCH (09:49)
[2018-02-20] MEDS: CEFEPIME 1 GM/D5W RTU 1 GM/50 ML RTUPB IV SCH (09:49)
[2018-02-20] MEDS ORDERED: FUROSEMIDE INJ/PF 20 MG/2 ML SDV IV ONE (10:00)
[2018-02-20] MEDS ORDERED: POTASSIUM CHLORIDE 10 MEQ TABLET.SA PO ONE (10:00)
--- NOTE | 2018-02-20 10:02 | RADIOLOGY REPORT (SQ) ---
EXAM DESCRIPTION: CHEST SINGLE VIEW COMPLETED DATE/TIME: 02/20/2018 9:51 am REASON FOR STUDY: shortness of breath COMPARISON: Chest films 04/25/2014, 02/04/2018, 02/16/2018, 02/19/2018 CT chest 02/16/2018 EXAM PARAMETERS: NUMBER OF VIEWS: One view. TECHNIQUE: Single frontal radiographic view of the chest acquired. RADIATION DOSE: NA LIMITATIONS: None. FINDINGS: LUNGS AND PLEURA: Low lung volumes. Chronic increased interstitial markings bilaterally f rom pulmonary fibrosis. No acute infiltrates. No pleural effusion or pneumothorax. MEDIASTINUM AND HILAR STRUCTURES: No masses. Contour normal. HEART AND VASCULAR STRUCTURES: Moderate cardiomegaly BONES: No acute findings. HARDWARE: None in the chest. OTHER: No other significant finding. IMPRESSION: A chronic increased interstitial markings from pulmonary fibrosis. No gross acute oh es. Stable cardiomegaly TECHNICAL DOCUMENTATION: JOB ID: [id number] [employer]- All Rights Reserved Reading location - IP/workstation name: [email or web address]
[2018-02-20] MEDS: OSELTAMIVIR PHOSPHATE 75 MG CAPSULE PO SCH (10:07)
--- NOTE | 2018-02-20 13:27 | PDOC PROGRESS REPORT ---
Subjective Progress Note for:: 02/20/18 Subjective:: Patient seen on morning rounds and seems improved. His leg swelling is better. Patient now has a got a bed at [facility]. Pt is denying any chest arm or neck discomfort. Patient denying any PND, orthopnea. Patient denied any sustained palpitations, dizziness, syncope, near syncope. Patient denying any fever chills. Patient denying any other significant discomfort. Patient is maintaining sinus rhythm. Review of systems: Rest review of systems negative. Medications: Medications have been reviewed. Reason For Visit: ACUTE AND CHRONIC HYPOXIC RESPIRATORY FAILURE, Physical Exam Vital Signs: Temp Pulse Resp BP Pulse Ox 97.6 F 86 22 H 152/72 H 100 02/20/18 01:00 02/20/18 07:00 02/20/18 01:00 02/20/18 01:00 02/20/18 01:00 Intake & Output 02/19/18 02/20/18 02/21/18 06:59 06:59 06:59 Intake Total 1059 1840 Output Total 2030 4725 Balance -971 -2889 Weight 71.4 kg Exam: GENERAL: well-nourished and in no acute distress. Alert and oriented x3 HEAD: Atraumatic, normocephalic. EYES: Pupils equal round and reactive to light, extraocular movements intact, sclera anicteric, conjunctiva are normal. ENT: TMs normal, nares patent, oropharynx clear without exudates. Moist mucous membranes. No oral ulcerations or bleeding gums noted NECK: supple without lymphadenopathy. Trachea is central. No cervical or axillary lymphadenopathy noted. Carotids are 2+, JVD 8-9 cm LUNGS: Respiration seems nonlabored, no significant accessory muscle action noted. Bibasilar fine crackles noted. No wheezes rales or rhonchi noted. No significant dullness noted on percussion. CHEST: Palpation of the chest wall shows no significant chest wall tenderness. No other significant abnormalities noted. HEART: [place] [employer], No PSH, 1/6 MYA aortic area, 1/6 blood systolic murmur mitral area, no rubs, no gallops. ABDOMEN: Soft, no significant tenderness appreciated, normoactive bowel sounds. No guarding, no rebound. No rigidity noted . No masses appreciated. EXTREMITIES: Pedal pulses are 1-2+, no calf tenderness noted. No clubbing or cyanosis.trace to 1+ pedal edema noted NEUROLOGICAL: Focused neurological exam showed no significant neurologic deficit. Normal speech, no focal weakness appreciated. PSYCH: Normal mood, normal affect. Judgment and insight within normal limits. SKIN: No significant ecchymosis, skin is noted to be warm. MUSCULOSKELETAL EXAM: No significant acute joint swelling noted. Results Laboratory Results: 02/20/18 05:12 02/20/18 05:12 02/20/18 02/20/18 05:12 05:12 WBC 11.7 H RBC 3.37 L Hgb 9.0 L Hct 27.3 L MCV 81 MCH 26.7 L MCHC 32.9 RDW 15.5 H Plt Count 523 H Seg Neutrophils % 73.4 Lymphocytes % 13.2 Monocytes % 12.8 Eosinophils % 0.4 Basophils % 0.2 Absolute Neutrophils 8.6 H Absolute Lymphocytes 1.5 Absolute Monocytes 1.5 H Absolute Eosinophils 0.0 Absolute Basophils 0.0 Sodium 138.6 Potassium 3.5 L Chloride 101 Carbon Dioxide 26 Anion Gap 12 BUN 16 Creatinine 1.05 Est GFR ( Amer) > 60 Est GFR (Non-Af Amer) > 60 Glucose 96 Calcium 8.9 Magnesium 1.8 Total Bilirubin 0.2 AST 19 ALT 25 Alkaline Phosphatase 98 Total Protein 5.5 L Albumin 3.0 L 02/17/18 14:40 Sputum Gram Stain - Final 02/17/18 14:40 Sputum Sputum Culture - Final Pseudomonas Aeruginosa Normal Radha 02/16/18 02/17/18 02/17/18 19:05 01:02 07:50 Troponin I 0.062 0.056 0.044 NT-Pro-B Natriuret Pep 02/17/18 07:50 Troponin I NT-Pro-B Natriuret Pep 1270 H EKG Comments: Telemetry strip shows sinus rhythm without any sustained tachycardia or bradycardia. Impressions: Chest CT 02/16/18 00:00 IMPRESSION: Multicentric pneumonia most prominently involving the right lower lobe. Mild mediastinal adenopathy. Chest X-Ray 02/20/18 00:00 IMPRESSION: A chronic increased interstitial markings from pulmonary fibrosis. No gross acute changes. Stable cardiomegaly Assessment & Plan - Diagnosis (1) Acute respiratory failure with hypoxia Is this a current diagnosis for this admission?: Yes (2) Diabetes Qualifiers: Diabetes mellitus type: type 2 Diabetes mellitus director long term care insulin use: unspecified director long term care insulin use status Diabetes mellitus complication status : with unspecified complications Qualified Code(s): E11.8 - Type 2 diabetes mellitus with unspecified complications Is this a current diagnosis for this admission?: Yes (3) Interstitial pneumonia Is this a current diagnosis for this admission?: Yes (4) CHF (congestive heart failure) Qualifiers: Heart failure type: right-sided Heart failure chronicity: acute on chronic Qualified Code(s): I50.813 - Acute on chronic right heart failure Is this a current diagnosis for this admission?: Yes (5) Elevated troponin I level Is this a current diagnosis for this admission?: Yes - Notes Notes: Generally improved and stable. Patient does need tertiary care in view of lung problem which is being managed at [facility]. Cardiac osullivan apart from CHF which is felt to be right-sided, no significant cardiac dysrhythmia noted. Patient does respond to IV diuretics. Acute respiratory failure: Improved. Patient on some nasal cannula oxygen supplementation. Most likely related to pneumonia and interstitial lungs disease. Continue with antibiotic therapy, oxygenation, may consider bilevel therapy etc. CHF: Patient felt to have right-sided CHF. Improved. Patient getting additional dose of IV Lasix. Patient has peripheral edema, improved. Continue current diuretic therapy. Interstitial pneumonia: Patient on antibiotic therapy directed by [facility] physicians and also hospitalist here. Diabetes: Continue current management plans. Elevated troponin I: Most likely related to hypoxemia and pneumonia. Do not feel patient has acute coronary syndrome. Will sign off as patient is going to [facility]. Please reconsult if needed. - Time Time with patient: 15-25 minutes - CODE STATUS was discussed, patient remains full code. Surrogate decision-maker patient's . Multiple medical problems were addressed. More than 50% of the time spent coordinating care, discussing management plans with involved caregivers. Management plans discussed with involved personnels. Medical decision making was of moderate to high complexity , patient's has multiple comorbidities. Medications reviewed and adjusted accordingly: Yes
--- NOTE | 2018-02-21 17:05 | PDOC CONSULTATION ---
Consultation Consult Date: 02/17/18 Attending physician:: MENDEL MONTILLA Consult reason:: RESP DISTRESS History of Present Illness Admission Date/PCP: 02/16/18 15:29 History of Present Illness: MARILYNN GARCÍA is a 62 year old male presents to hospital with complaint of shortness of breath and cough for the last several days. reports that patient was seen at [facility] by Dr. Kent who placed patient on CellCept and decrease patient's steroids. Patient states that by the end of November he began having more respiratory issues. reports that patient's breathing continued to worsen into December and recently they came to the emergency room for evaluation. reports that they were told that was most likely due to allergies and patient was sent home from the emergency department. Family represented today because of patient not feeling better. also reported that patient has been febrile at home. reports that temperature has been from 100.2F -103.6. Pt states that sat decreased to 75% with exertion. [facility] pulmonary service who recommended that patient be transferred to their facility but due to them being on diversion recommended that patient stay here in our hospital until bed is available. [facility] pulmonary doctor Grace recommended that patient be placed on Bactrim for PCP treatment, steroids, and continue with current antibiotics. Past Medical History Endocrine Medical History: Reports: Diabetes Mellitus Type 2 - neuropathy GI Medical History: Reports: Gastroesophageal Reflux Disease Musculoskeltal Medical History: Reports: Arthritis Past Surgical History Past Surgical History: Reports: Cardiac Catheterization Social History Lives with: Family Smoking Status: Never Smoker Frequency of Alcohol Use: None Hx Recreational Drug Use: No Drugs: None Hx Prescription Drug Abuse: No - Advance Directive Resuscitation Status: Do Not Resuscitate Family History Parental Family History Reviewed: No Children Family History Reviewed: No Sibling(s) Family History Reviewed.: No Medication/Allergy Home Medications: Albuterol Sulfate [Proair HFA] 2 puff IH Q4HP PRN 02/16/18 Baclofen [Baclofen 10 mg Tablet] 10 mg PO BID 02/16/18 Ferrous Sulfate [Iron] 325 mg PO NOON 02/16/18 Fluoxetine HCl [Prozac 20 mg Capsule] 20 mg PO QHS 02/16/18 Fluticasone Propionate [Flonase Allergy Relief] 2 spray NASL DAILY 02/16/18 Furosemide [Lasix 20 mg Tablet] 20 mg PO QAM 02/16/18 Gabapentin [Neurontin] 300 mg PO NOON 02/16/18 Insulin Aspart [Novolog Flexpen] 20 unit SUBCUT BIDACBL 02/16/18 Insulin Aspart [Novolog Flexpen] 22 unit SUBCUT WSUPPER 02/16/18 Insulin Glargine,Hum.rec.anlog [Lantus Insulin 100 Unit/mL] 24 unit SUBCUT QHS 02/16/18 Metformin HCl [Metformin HCl ER] 1,000 mg PO BID 02/16/18 Montelukast Sodium [Singulair 10 mg Tablet] 10 mg PO QHS 02/16/18 Mycophenolate Mofetil [Cellcept 250 mg Capsule] 1,000 mg PO Q12 02/16/18 Pantoprazole Sodium [Protonix] 40 mg PO BID 02/16/18 Pravastatin Sodium [Pravachol] 20 mg PO QHS 02/16/18 Prednisone [Deltasone 10 mg Tablet] 10 mg PO NOON 02/16/18 Sulfamethoxazole/Trimethoprim [Bactrim 400-80 mg Tablet] 2 tab PO MOWEFR@1000 Tiotropium Lohman [Spiriva Handihaler 18 mcg/dose (30 Dose)] 1 cap IH DAILY Allergies/Adverse Reactions: No Known Allergies Allergy (Verified 02/16/18 13:24) Review of Systems Constitutional: PRESENT: anorexia, fatigue, weakness. ABSENT: night sweats, weight gain Eyes: ABSENT: visual disturbances Ears: ABSENT: hearing changes Nose, Mouth, and Throat: ABSENT: mouth pain, sore throat Cardiovascular: ABSENT: orthropnea, palpitations Gastrointestinal: ABSENT: coffee ground emesis, dysphagia, heartburn, hematemesis, hematochezia, melena Genitourinary: ABSENT: dysuria, hematuria Musculoskeletal: ABSENT: joint swelling Integumentary: ABSENT: pruritus, rash Neurological: ABSENT: abnormal speech, confusion, frequent falls, lack of coordination, memory loss Psychiatric: ABSENT: hallucinations, homidical ideation, suicidal ideation Endocrine: ABSENT: cold intolerance, heat intolerance, menstrual abnormalities, polydipsia, polyuria Hematologic/Lymphatic: PRESENT: easy bruising Physical Exam Vital Signs: Temp Pulse Resp BP Pulse Ox 98.7 F 100 30 H 152/79 H 97 02/17/18 07:48 02/17/18 07:53 02/17/18 07:48 02/17/18 07:48 02/17/18 07:48 Intake & Output 02/16/18 02/17/18 02/18/18 06:59 06:59 06:59 Intake Total 700 237 Output Total 850 500 Balance -150 -263 Weight 111.9 kg General appearance: PRESENT: no acute distress, cooperative, disheveled, thin Head exam: PRESENT: atraumatic, normocephalic Eye exam: PRESENT: conjunctiva pale, EOMI. ABSENT: nystagmus, periorbital swelling, scleral icterus Mouth exam: PRESENT: dry mucosa, neck supple, tongue midline Neck exam: ABSENT: carotid bruit, JVD, lymphadenopathy, thyromegaly, tracheal deviation, tracheostomy Respiratory exam: PRESENT: crackles, decreased breath sounds, prolonged expiratory phas, rhonchi, symmetrical, unlabored. ABSENT: rales, retraction, stridor, tachypnea Cardiovascular exam: PRESENT: RRR, +S1, +S2, tachycardia Pulses: PRESENT: normal radial pulses GI/Abdominal exam: PRESENT: diminished bowel sounds, soft Extremities exam: ABSENT: clubbing, joint swelling Musculoskeletal exam: ABSENT: ambulatory, deformity, dislocation Neurological exam: PRESENT: alert, awake Psychiatric exam: PRESENT: flat affect Skin exam: PRESENT: dry, warm Results Laboratory Results: 02/17/18 07:50 02/17/18 07:50 02/16/18 02/17/18 02/17/18 21:15 07:50 07:50 WBC 13.1 H RBC 3.20 L Hgb 8.8 L Hct 26.2 L MCV 82 MCH 27.4 MCHC 33.4 RDW 15.4 H Plt Count 423 Seg Neutrophils % Not Reportable Lymphocytes % Not Reportable Monocytes % Not Reportable Eosinophils % Not Reportable Basophils % Not Reportable Absolute Neutrophils Not Reportable Absolute Lymphocytes Not Reportable Absolute Monocytes Not Reportable Absolute Eosinophils Not Reportable Absolute Basophils Not Reportable Carbonic Acid 0.96 L HCO3/H2CO3 Ratio 23:1 ABG pH 7.46 H ABG pCO2 31.8 L ABG pO2 82.6 ABG HCO3 22.1 ABG O2 Saturation 96.8 ABG Base Excess -1.1 FiO2 5L Sodium 141.9 Potassium 3.6 Chloride 110 H Carbon Dioxide 23 Anion Gap 9 BUN 9 Creatinine 0.91 Est GFR ( Amer) > 60 Est GFR (Non-Af Amer) > 60 Glucose 142 H Calcium 8.2 L Magnesium 1.5 L Total Bilirubin 0.6 AST 19 ALT 28 Alkaline Phosphatase 97 Total Protein 5.2 L Albumin 2.6 L 02/16/18 02/17/18 02/17/18 19:05 01:02 07:50 Troponin I 0.062 0.056 NT-Pro-B Natriuret Pep 1270 H Impressions: Chest CT 02/16/18 00:00 IMPRESSION: Multicentric pneumonia most prominently involving the right lower lobe. Mild mediastinal adenopathy. Chest X-Ray 02/16/18 14:21 IMPRESSION: Chronic bandlike scarring right mid lung New alveolar and interstitial infiltrates at both lung bases, worrisome for alveolar and interstitial edema. Pneumonia could not entirely be excluded Assessment & Plan - Diagnosis (1) Acute on chronic diastolic congestive heart failure Is this a current diagnosis for this admission?: Yes Plan: PER PCP (2) Acute respiratory failure with hypoxia Is this a current diagnosis for this admission?: Yes Plan: STABLE (3) Chronic hypersensitivity pneumonitis Is this a current diagnosis for this admission?: Yes Plan: STEROIDS (4) Dyspnea Qualifiers: Dyspnea type: dyspnea on exertion Qualified Code(s): R06.09 - Other forms of dyspnea Is this a current diagnosis for this admission?: Yes Plan: MIN EXERTION (5) Pneumonia Qualifiers: Pneumonia type: due to unspecified organism Laterality: right Lung location: lower lobe of lung Qualified Code(s): J18.1 - Lobar pneumonia, unspecified organism (6) Pulmonary hypertension Is this a current diagnosis for this admission?: Yes Plan: STABLE
--- NOTE | 2018-02-21 17:09 | PDOC PROGRESS REPORT ---
Subjective Progress Note for:: 02/18/18 Subjective:: REMAINS SHORT OF BREATH W/MINIMAL ACTIVITY Reason For Visit: ACUTE AND CHRONIC HYPOXIC RESPIRATORY FAILURE, Physical Exam Vital Signs: Temp Pulse Resp BP Pulse Ox 97.7 F 67 23 H 142/80 H 94 02/18/18 08:00 02/18/18 08:25 02/18/18 08:00 02/18/18 08:00 02/18/18 08:00 Intake & Output 02/17/18 02/18/18 02/19/18 06:59 06:59 06:59 Intake Total 700 2197 Output Total 850 3000 Balance -150 -803 Weight 111.9 kg 111.8 kg General appearance: PRESENT: no acute distress, cooperative, disheveled, thin Head exam: PRESENT: atraumatic, normocephalic Eye exam: PRESENT: conjunctiva pale, EOMI Mouth exam: PRESENT: dry mucosa, neck supple, tongue midline Neck exam: ABSENT: carotid bruit, JVD, lymphadenopathy, thyromegaly, tracheal deviation, tracheostomy Respiratory exam: PRESENT: decreased breath sounds, prolonged expiratory phas, rhonchi, symmetrical, unlabored Cardiovascular exam: PRESENT: RRR, +S1, +S2 Pulses: PRESENT: normal radial pulses GI/Abdominal exam: PRESENT: diminished bowel sounds, soft Gentrourinary exam: PRESENT: indwelling catheter Extremities exam: ABSENT: clubbing Musculoskeletal exam: ABSENT: ambulatory, deformity, dislocation Neurological exam: PRESENT: alert, awake Psychiatric exam: PRESENT: normal mood Skin exam: PRESENT: dry, warm Results Laboratory Results: 02/18/18 03:55 02/18/18 03:55 02/18/18 02/18/18 03:55 03:55 WBC 14.1 H RBC 3.21 L Hgb 8.6 L Hct 26.2 L MCV 82 MCH 26.9 L MCHC 32.9 RDW 15.3 H Plt Count 403 Seg Neutrophils % Not Reportable Lymphocytes % Not Reportable Monocytes % Not Reportable Eosinophils % Not Reportable Basophils % Not Reportable Absolute Neutrophils Not Reportable Absolute Lymphocytes Not Reportable Absolute Monocytes Not Reportable Absolute Eosinophils Not Reportable Absolute Basophils Not Reportable Sodium 140.5 Potassium 3.7 Chloride 106 Carbon Dioxide 21 L Anion Gap 14 BUN 14 Creatinine 0.87 Est GFR ( Amer) > 60 Est GFR (Non-Af Amer) > 60 Glucose 136 H Calcium 8.7 Total Bilirubin 0.2 AST 20 ALT 33 Alkaline Phosphatase 110 Total Protein 5.3 L Albumin 2.8 L 02/16/18 23:30 Sputum Gram Stain - Final 02/16/18 23:30 Sputum Sputum Culture - Final 02/16/18 02/17/18 02/17/18 19:05 01:02 07:50 Troponin I 0.062 0.056 0.044 NT-Pro-B Natriuret Pep 02/17/18 07:50 Troponin I NT-Pro-B Natriuret Pep 1270 H Impressions: Chest CT 02/16/18 00:00 IMPRESSION: Multicentric pneumonia most prominently involving the right lower lobe. Mild mediastinal adenopathy. Chest X-Ray 02/16/18 14:21 IMPRESSION: Chronic bandlike scarring right mid lung New alveolar and interstitial infiltrates at both lung bases, worrisome for alveolar and interstitial edema. Pneumonia could not entirely be excluded Assessment & Plan - Diagnosis (1) Acute respiratory failure with hypoxia Is this a current diagnosis for this admission?: Yes Plan: UNCHANGED (2) Chronic hypersensitivity pneumonitis Is this a current diagnosis for this admission?: Yes Plan: STEROIDS (3) Dyspnea Qualifiers: Dyspnea type: dyspnea on exertion Qualified Code(s): R06.09 - Other forms of dyspnea Is this a current diagnosis for this admission?: Yes Plan: MIN EXERTION (4) Pulmonary hypertension Is this a current diagnosis for this admission?: Yes Plan: STABLE
--- NOTE | 2018-02-21 17:11 | PDOC PROGRESS REPORT ---
Subjective Progress Note for:: 02/19/18 Subjective:: REMAINS SHORT OF BREATH W/MINIMAL ACTIVITY Reason For Visit: ACUTE AND CHRONIC HYPOXIC RESPIRATORY FAILURE, Physical Exam Vital Signs: Temp Pulse Resp BP Pulse Ox 97.6 F 92 23 H 156/80 H 92 02/19/18 04:00 02/19/18 04:35 02/19/18 06:00 02/19/18 04:17 02/19/18 06:00 Intake & Output 02/18/18 02/19/18 02/20/18 06:59 06:59 06:59 Intake Total 2197 1059 Output Total 3000 2030 250 Balance -803 -971 -250 Weight 111.8 kg General appearance: PRESENT: no acute distress, cooperative, disheveled, thin Head exam: PRESENT: atraumatic, normocephalic Eye exam: PRESENT: conjunctiva pale, EOMI. ABSENT: nystagmus, periorbital swelling, scleral icterus Mouth exam: PRESENT: dry mucosa, neck supple, tongue midline Neck exam: ABSENT: carotid bruit, JVD, lymphadenopathy, thyromegaly, tracheal deviation, tracheostomy Respiratory exam: PRESENT: decreased breath sounds, prolonged expiratory phas, rales, rhonchi, symmetrical, unlabored. ABSENT: retraction, stridor, tachypnea Cardiovascular exam: PRESENT: RRR, +S1, +S2, systolic murmur Pulses: PRESENT: normal radial pulses GI/Abdominal exam: PRESENT: diminished bowel sounds, soft Gentrourinary exam: ABSENT: indwelling catheter Extremities exam: ABSENT: clubbing Musculoskeletal exam: ABSENT: deformity, dislocation Neurological exam: PRESENT: alert, awake Skin exam: PRESENT: dry, warm Results Laboratory Results: 02/19/18 04:48 02/19/18 04:48 02/19/18 02/19/18 02/19/18 04:48 04:48 06:20 WBC 13.8 H RBC 3.59 L Hgb 9.4 L Hct 28.9 L MCV 81 MCH 26.2 L MCHC 32.5 RDW 15.8 H Plt Count 504 H Seg Neutrophils % 78.1 H Lymphocytes % 11.6 L Monocytes % 10.1 Eosinophils % 0.1 Basophils % 0.1 Absolute Neutrophils 10.8 H Absolute Lymphocytes 1.6 Absolute Monocytes 1.4 Absolute Eosinophils 0.0 Absolute Basophils 0.0 Carbonic Acid 1.10 HCO3/H2CO3 Ratio 20:1 ABG pH 7.40 ABG pCO2 36.6 ABG pO2 81.7 ABG HCO3 22.2 ABG O2 Saturation 96.1 ABG Base Excess -2.2 FiO2 5L Sodium 141.1 Potassium 3.7 Chloride 103 Carbon Dioxide 22 Anion Gap 16 BUN 17 Creatinine 1.02 Est GFR ( Amer) > 60 Est GFR (Non-Af Amer) > 60 Glucose 102 Calcium 9.1 Magnesium 1.8 Total Bilirubin 0.2 AST 21 ALT 34 Alkaline Phosphatase 108 Total Protein 5.9 L Albumin 3.2 L 02/16/18 02/17/18 02/17/18 19:05 01:02 07:50 Troponin I 0.062 0.056 0.044 NT-Pro-B Natriuret Pep 02/17/18 07:50 Troponin I NT-Pro-B Natriuret Pep 1270 H Impressions: Chest CT 02/16/18 00:00 IMPRESSION: Multicentric pneumonia most prominently involving the right lower lobe. Mild mediastinal adenopathy. Chest X-Ray 02/19/18 06:00 IMPRESSION: 1. Stable appearance of the chest with bibasilar interstitial and alveolar opacities. Assessment & Plan - Diagnosis (1) Acute respiratory failure with hypoxia Is this a current diagnosis for this admission?: Yes Plan: UNCHANGED (2) Chronic hypersensitivity pneumonitis Is this a current diagnosis for this admission?: Yes Plan: STEROIDS (3) Dyspnea Qualifiers: Dyspnea type: dyspnea on exertion Qualified Code(s): R06.09 - Other forms of dyspnea Is this a current diagnosis for this admission?: Yes Plan: MIN EXERTION (4) Pulmonary hypertension Is this a current diagnosis for this admission?: Yes Plan: STABLE
== END 2018-02-20 11:46 | disposition short-term general hospital (02) | DRG 871 ==
LOC: ER 13:21 → EH 15:29 → ICU 20:15 → 4S 02-20 01:28
PROVIDERS: ADMIT Emergency Medicine; ATTEND Emergency Medicine
PROC: 3E0F73Z Introduction of Anti-inflammatory into Respiratory Tract, Via Natural or Artificial Opening (ICD-10-PCS; principal; 2018-02-17)
PROC: 5A09357 Assistance with Respiratory Ventilation, Less than 24 Consecutive Hours, Continuous Positive Airway Pressure (ICD-10-PCS; 2018-02-20)
DX: A41.9 Sepsis, unspecified organism (principal); J96.01 Acute respiratory failure with hypoxia; I50.33 Acute on chronic diastolic (congestive) heart failure; J15.1 Pneumonia due to Pseudomonas; J84.9 Interstitial pulmonary disease, unspecified; I27.20 Pulmonary hypertension, unspecified; E11.40 Type 2 diabetes mellitus with diabetic neuropathy, unspecified; I11.0 Hypertensive heart disease with heart failure; E66.01 Morbid (severe) obesity due to excess calories; K21.9 Gastro-esophageal reflux disease without esophagitis; M19.90 Unspecified osteoarthritis, unspecified site; E87.6 Hypokalemia; R74.8 Abnormal levels of other serum enzymes; Z79.52 Long term (current) use of systemic steroids; Z66 Do not resuscitate; Z79.4 Long term (current) use of insulin; Z79.899 Other long term (current) drug therapy
CPT/HCPCS: 36415; 36600; 71045; 71250; 80053; 80202; 82565; 82803; 82962; 83605; 83735; 83880; 84484; 85025; 87040; 87070; 87077; 87186; 87205; 93005; 93010; 93306; 94640; 94660; 96374; 99285; J0692; J1815; J1940; J2920; J3370; J3490; J7030; J7060; J7517; J7620

== ENCOUNTER 2018-03-20 22:37 | Emergency (ER) | payer OTHER, MEDICARE ==
--- NOTE | 2018-03-20 22:58 | ER Document Report ---
ED General - General Chief Complaint: Shortness Of Breath Stated Complaint: SHORTNESS OF BREATH Time Seen by Provider: 03/20/18 22:53 Mode of Arrival: Wheelchair Information source: Patient, Relative, [facility] Records Notes: 63-year-old male history of interstitial lung disease who is on Bactrim 3 times a week prophylactically and was seen by myself a few weeks prior for respiratory distress and admitted noted to have pneumonia as well as a DVT in the left leg started on Xarelto presents with complaints of left-sided rib pain. Patient believes this pain is from coughing, notes that he is on anywhere between 6-15 L of nasal cannula at home, he states at rest it is at 6 with ambulation goes to 10 with physical therapy he requires 15, Currently patient denies any shortness of breath TRAVEL OUTSIDE OF THE [place] IN LAST 30 DAYS: No - HPI Onset: Other - 3-4 weeks duration Onset/Duration: Waxing and waning Quality of pain: Achy, Sharp Severity: Mild Pain Level: 1 Associated symptoms: Body/muscle aches, Productive cough - Improved but still green, Shortness of breath Exacerbated by: Coughing Relieved by: Denies Similar symptoms previously: Yes Recently seen / treated by doctor: Yes - Related Data Allergies/Adverse Reactions: No Known Allergies Allergy (Verified 02/16/18 13:24) Past Medical History - Social History Smoking Status: Never Smoker Cigarette use (# per day): No Chew tobacco use (# tins/day): No Smoking Education Provided: No Family History: Reviewed & Not Pertinent Pulmonary Medical History: Reports: Hx COPD Endocrine Medical History: Reports: Hx Diabetes Mellitus Type 2 - neuropathy Renal/ Medical History: Denies: Hx Peritoneal Dialysis GI Medical History: Reports: Hx Gastroesophageal Reflux Disease Musculoskeltal Medical History: Reports Hx Arthritis Past Surgical History: Reports: Hx Cardiac Catheterization, Hx Cardiac Surgery - ablasion - Immunizations Immunizations up to date: Yes Hx Diphtheria, Pertussis, Tetanus Vaccination: Yes Review of Systems - Review of Systems Notes: REVIEW OF SYSTEMS: CONSTITUTIONAL : Denies fever, chills, or sweats. Denies recent illness. EENT: Denies eye, ear, throat, or mouth pain or symptoms. Denies nasal or sinus congestion or discharge. Denies throat, tongue, or mouth swelling or difficulty swallowing. CARDIOVASCULAR: Denies chest pain. Denies palpitations or racing or irregular heart beat. Denies ankle edema. RESPIRATORY: Admits to cough shortness of breath productive green left-sided rib pain. GASTROINTESTINAL: Denies abdominal pain or distention. Denies nausea, vomiting , or diarrhea. Denies blood in vomitus, stools, or per rectum. Denies black, tarry stools. Denies constipation. GENITOURINARY: Denies difficulty urinating, painful urination, burning, frequency, blood in urine, or discharge. MUSCULOSKELETAL: Denies back or neck pain or stiffness. Denies joint pain or swelling. SKIN: Denies rash, lesions or sores. HEMATOLOGIC : Denies easy bruising or bleeding. LYMPHATIC: Denies swollen, enlarged glands. NEUROLOGICAL: Denies confusion or altered mental status. Denies passing out or loss of consciousness. Denies dizziness or lightheadedness. Denies headache. Denies weakness or paralysis or loss of use of either side. Denies problems with gait or speech. Denies sensory loss, numbness, or tingling. Denies seizures. PSYCHIATRIC: Denies anxiety or stress. Denies depression, suicidal ideation, or homicidal ideation. ALL OTHER SYSTEMS REVIEWED AND NEGATIVE. Dictation was performed using [employer] voice recognition software PHYSICAL EXAMINATION: GENERAL: Patient appears much better than previous visit HEAD: Atraumatic, normocephalic. EYES: Pupils equal round and reactive to light, extraocular movements intact, sclera anicteric, conjunctiva are normal. ENT: Nares patent, oropharynx clear without exudates. Moist mucous membranes. NECK: Normal range of motion, supple without lymphadenopathy LUNGS: Crackles at the bilateral bases tenderness upon palpation left lower ribs HEART: Regular rate and rhythm without murmurs ABDOMEN: Soft, nontender, nondistended abdomen. No guarding, no rebound. No masses appreciated. Musculoskeletal: Normal range of motion, no pitting or edema. No cyanosis. NEUROLOGICAL: Cranial nerves grossly intact. Normal speech, normal gait. Normal sensory, motor exams PSYCH: Normal mood, normal affect. SKIN: Warm, Dry, normal turgor, no rashes or lesions noted. Physical Exam - Vital signs Vitals: Temp Pulse Resp BP Pulse Ox 97.7 F 104 H 28 H 152/69 H 95 03/20/18 22:46 03/20/18 22:46 03/20/18 22:46 03/20/18 22:46 03/20/18 22:46 Course - Re-evaluation Re-evalutation: 03/20/18 23:09 I believe the patient's pain may be secondary to his coughing, however given history of DVT a CTA has been ordered 03/21/18 03:51 CTA was performed, no pulmonary emboli is noted improved aeration of the lungs are noted therefore I have very low suspicion that this is anything life- threatening and I believe this is all secondary to his cough as I previously expected. Patient sided well here on his baseline 6 L and cannula, he looks much better than his previous presentation therefore I believe he is stable for discharge patient is very happy with this plan After performing a Medical Screening Examination, I estimate there is LOW risk for ACUTE CORONARY SYNDROME, PULMONARY EMBOLI, RESPIRATORY FAILURE, SEPSIS OR MENINGITIS, thus I consider the discharge disposition reasonable. I have reevaluated this patient multiple times and no significant life threatening changes are noted. The patient and I have discussed the diagnosis and risks, and we agree with discharging home with close follow-up. We also discussed returning to the Emergency Department immediately if new or worsening symptoms occur. We have discussed the symptoms which are most concerning (e.g., changing or worsening pain, trouble swallowing or breathing, neck stiffness, fever) that necessitate immediate return. - Vital Signs Vital signs: Temp Pulse Resp BP Pulse Ox 97.7 F 104 H 24 H 126/74 H 96 03/20/18 22:46 03/20/18 22:46 03/20/18 23:31 03/20/18 23:31 03/20/18 23:31 - Laboratory Result Diagrams: 03/21/18 00:19 03/20/18 23:07 Laboratory results interpreted by me: 03/20/18 03/21/18 23:07 00:19 RBC 3.46 L Hgb 9.8 L Hct 29.4 L RDW 18.3 H Glucose 175 H - Diagnostic Test Radiology reviewed: Image reviewed - CTA chest noted improved aeration with no pulmonary emboli, Reports reviewed Discharge - Discharge Clinical Impression: Chest wall pain, Chronic hypersensitivity pneumonitis Condition: Stable Disposition: HOME, SELF-CARE Instructions: Chest Wall Pain ([facility]) Additional Instructions: Follow up with your physician tomorrow for further care or return to the ED IMMEDIATELY if symptoms worsen or new concerns occur. If you cannot afford to follow up with your primary care physician a list of low cost clinics have been provided at the end of your discharge papers as well. Prescriptions: Hydrocodone Bit/Homatropine [Hycodan Syrup 5-1.5 mg/5 ml Ud Cup] 5 ml PO Q4HP PRN #120 ml PRN Reason: Lidocaine [Lidoderm 5% (700 mg) Transdermal Patch] 1 patch TP DAILY #30 adh..patch
[2018-03-20] MEDS ORDERED: HYDROCODONE BIT/HOMATROPINE SYRUP 5 ML UDCUP PO ONE (23:10)
[2018-03-20] MEDS ORDERED: HYDROCODONE BIT/HOMATROPINE 5-1.5 MG TABLET PO ONE (23:36)
[2018-03-20 23:41] VITALS: BP 126/74
[2018-03-20 23:55] LABS: ALANINE AMINOTRANSFERASE 25 U/L (21-72); ALKALINE PHOSPHATASE 125 U/L (38-126); ANION GAP 14 (5-19); ASPARTATE AMINO TRANSFERASE 22 U/L (17-59); BILIRUBIN,DIRECT 0.3 mg/dL (0.0-0.4); BILIRUBIN,TOTAL 0.3 mg/dL (0.2-1.3); BLOOD UREA NITROGEN 18 mg/dL (7-20); CALCIUM 9.4 mg/dL (8.4-10.2); CARBON DIOXIDE 29 mmol/L (22-30); CHLORIDE 100 mmol/L (98-107); CREATINE KINASE 60 U/L (55-170); GLUCOSE 175 mg/dL (75-110); POTASSIUM 4.1 mmol/L (3.6-5.0); SODIUM 143.1 mmol/L (137-145); TOTAL PROTEIN 7.2 g/dL (6.3-8.2)
[2018-03-21 00:08] LABS: CREATINE KINASE MB 1.24 ng/mL (<4.55); NT PRO BNP 96 pg/mL (5-900)
[2018-03-21 00:11] LABS: TROPONIN I < 0.012 ng/mL
[2018-03-21 00:14] LABS: VENOUS BLOOD BASE EXCESS 3.5 mmol/L; VENOUS BLOOD HCO3 28.6 mmol/L (20-32); VENOUS BLOOD PCO2 45.8 mmHg (35-63); VENOUS BLOOD PH 7.41 (7.30-7.42)
[2018-03-21 00:29] LABS: ABSOLUTE BASOPHILS # (AUTO) 0.1 10^3/uL (0.0-0.2); ABSOLUTE EOSINOPHILS # (AUTO) 0.3 10^3/uL (0.0-0.6); ABSOLUTE LYMPHOCYTES (AUTO) 1.5 10^3/uL (0.5-4.7); ABSOLUTE MONOCYTES (AUTO) 1.3 10^3/uL (0.1-1.4); BASOPHILS % (AUTO) 0.7 % (0-2); EOSINOPHILS % (AUTO) 2.8 % (0-6); HEMATOCRIT 29.4 % (37.9-51.0); HEMOGLOBIN 9.8 g/dL (13.5-17.0); LYMPHOCYTES % (AUTO) 14.6 % (13-45); MEAN CORPUSCULAR HEMOGLOBIN 28.2 pg (27.0-33.4); MEAN CORPUSCULAR HGB CONC 33.2 g/dL (32.0-36.0); MONOCYTES % (AUTO) 12.7 % (3-13); PLATELET COUNT 361 10^3/uL (150-450); RED BLOOD COUNT 3.46 10^6/uL (4.35-5.55); RED CELL DISTRIBUTION WIDTH 18.3 % (11.5-14.0); SEGMENTED NEUTROPHILS % (AUTO) 69.2 % (42-78); TOTAL CELLS COUNTED % (AUTO) 100 %; WHITE BLOOD COUNT 10.1 10^3/uL (4.0-10.5)
[2018-03-21 00:30] LABS: MEAN CORPUSCULAR VOLUME 85 fl (80-97)
[2018-03-21] MEDS ORDERED: FENTANYL CITRATE INJ/PF 100 MCG/2 ML AMPUL IV ONE (00:42)
--- NOTE | 2018-03-21 01:03 | RADIOLOGY REPORT (SQ) ---
EXAM DESCRIPTION: CHEST SINGLE VIEW CLINICAL HISTORY: hypoxemia COMPARISON: 02/20/2018 FINDINGS: Single frontal view of the chest. Tortuosity of the thoracic aorta. Heart is not enlarged. Bilateral scattered interstitial opacities predominantly involving the mid and lower lung zones are stable. No acute opacities identified. No pneumothorax. No acute osseous abnormalities. Upper abdominal soft tissues are unremarkable. IMPRESSION: 1. No acute pulmonary process identified. Chronic interstitial opacities are stable.
--- NOTE | 2018-03-21 01:39 | RADIOLOGY REPORT (SQ) ---
EXAM DESCRIPTION: CTA of the chest per PE protocol with contrast. CLINICAL HISTORY: hx dvt, resp distress COMPARISON: The 2017 TECHNIQUE: CTA of the chest obtained following the uncomplicated intravenous administration of 82 mL Isovue-370. 3-D/MIP reformatted images of the chest available for evaluation. DLP: 1197.16 mGycm FINDINGS: Chest: Pulmonary arteries: Contrast bolus is adequate.No filling defects identified in the pulmonary arteries to suggest pulmonary embolus. Thyroid:No abnormalities of the visualized thyroid. Great Vessels: Atherosclerotic calcification of the aorta. Thoracic Aorta:No abnormalities of the thoracic aorta identified. Heart: Cardiac megaly. No definite pericardial effusion or calcified coronary artery atherosclerosis. Lymph Nodes:No enlarged mediastinal lymph nodes identified. Esophagus: Moderate hiatal hernia. Other:No additional findings. Lungs: Bilateral interstitial prominence, bronchial wall thickening and mild basilar bronchiectasis with improved aeration from the comparison CT from 02/16/2018 and scattered groundglass opacities. Pleura:No pleural effusion or pneumothorax. Trachea/Airways:No abnormalities of the visualized trachea or airways. Bones:No destructive osseous lesions. Upper Abdomen:Limited images of the upper abdomen demonstrate no definite abnormalities of visualized portions of the liver, gallbladder, pancreas, spleen, adrenal glands, or kidneys. IMPRESSION: 1. No pulmonary embolus identified. 2. Improved aeration of the lungs from the comparison CT from 02/16/2018 with findings compatible with chronic interstitial lung disease/fibrosis. Given persistent scattered groundglass opacities acute/developing pneumonic process cannot be excluded. Continued radiographic follow-up recommended. 3. Cardiomegaly. 4. Moderate hiatal hernia. This exam was performed according to our departmental dose-optimization program, which includes automated exposure control, adjustment of the mA and/or kV according to patient size and/or use of iterative reconstruction technique.
[2018-03-21] MEDS ORDERED: LIDOCAINE 5% (700 MG) TRANSDERMAL ADH..PATCH TP ONE (01:48)
--- NOTE | 2018-03-21 09:44 | EKG REPORT ---
SEVERITY:- ABNORMAL ECG - SINUS TACHYCARDIA NONSPECIFIC INTRAVENTRICULAR CONDUCTION DELAY CONSIDER POSTERIOR INFARCT : Confirmed by: True Ashley 21-Mar-2018 09:44:04
== END 2018-03-21 02:08 | disposition home or self-care (01) ==
LOC: ER 22:37
DX: J67.9 Hypersensitivity pneumonitis due to unspecified organic dust (principal); R07.89 Other chest pain; R06.02 Shortness of breath; M79.1 Myalgia; R05 Cough; Z79.01 Long term (current) use of anticoagulants; E11.9 Type 2 diabetes mellitus without complications; J44.9 Chronic obstructive pulmonary disease, unspecified
CPT/HCPCS: 93005; 99285; 96374; 36415; 87040; 82553; 82550; 85025; 80053; 84484; 82803; 83880; 71045; 71275; 93010; J3010

== ENCOUNTER 2019-10-17 10:35 | Day surgery (SDC) | payer OTHER ==
[~2019-10-17 10:35] MED LIST: PROPOFOL INJ 200 MG/20 ML VIAL IV ONE
--- NOTE | 2019-10-17 12:19 | Operative Report ---
Operative Report DATE OF SURGERY: 10/17/19 Operative Report: The risks, benefits and alternatives of the procedure including the risk of bleeding, perforation requiring surgery were explained to the patient in detail and informed consent was obtained. Patient is taken back to the endoscopy suite and placed in a left, lateral decubital position. Timeout was called. Propofol medication is administered. Rectal examination is done which did not reveal any masses, tears or fissures. An Olympus videoscope was introduced into the patient's rectum. Scope was then carefully advanced all the way to the cecum. Cecum was identified by the usual anatomical landmarks including the ileocecal valve as well as the appendiceal office. Photodocumentation is obtained. Scope was then sequentially pulled back via the various segments of the colon including the ascending colon, hepatic flexure, transverse colon, splenic flexure, descending colon and finally into the rectosigmoid portions of the colon. Retroflexion maneuvers performed. The risks benefits and alternatives of the procedure explained to the patient in detail and informed consent is obtained.A GIF Olympus video scope was inserted into the patient's mouth and hypopharynx, the esophagus is identified intubated and insufflated ,the scope was then advanced through the esophagus stomach and duodenum, retroflexion maneuver is done, the esophagus stomach and first and second portions of the duodenum examined PREOPERATIVE DIAGNOSIS: Anemia rule out GI bleed POSTOPERATIVE DIAGNOSIS: Random biopsies right colon rule out microscopic colitis. Colon polyp hepatic flexure removed via snare polypectomy and retrieved. two Polyps transverse colon removed via snare polypectomy and retrieved. All of these polyps roughly 5 to 6 mm in size. Diverticulosis without any evidence of diverticulitis. Internal hemorrhoids. gastritis status post biopsy without Helicobacter pylori. No upper or lower GI bleeding noted. OPERATION: Colonoscopy with snare polypectomy. Colonoscopy with biopsy. EGD with biopsy SURGEON: TISH KILGORE ANESTHESIA: LMAC TISSUE REMOVED OR ALTERED: As noted above. COMPLICATIONS: None. ESTIMATED BLOOD LOSS: None. INTRAOPERATIVE FINDINGS: As noted above. PROCEDURE: Patient tolerated the procedure well. No immediate postprocedure complications are noted. Patient is discharged in good condition. Discharge date 10/17/2019. Discharge diet: Regular. Discharge activity: Regular. 2 to 3-week follow-up to discuss findings. Patient is instructed to call the office or proceed to the emergency room should there be any further problems or questions. Wait on the pathology. 3-year surveillance colonoscopy. Patient is cleared to undergo lung surgery from the GI standpoint.
[2019-10-17 12:51] VITALS: BP 126/63
== END 2019-10-17 12:57 | disposition home or self-care (01) ==
LOC: END 10:35
PROVIDERS: ATTEND Internal Medicine Gastroenterology
DX: Z12.11 Encounter for screening for malignant neoplasm of colon (principal); D12.6 Benign neoplasm of colon, unspecified; D12.3 Benign neoplasm of transverse colon; K57.30 Diverticulosis of large intestine without perforation or abscess without bleeding; K64.8 Other hemorrhoids; K29.50 Unspecified chronic gastritis without bleeding; K52.9 Noninfective gastroenteritis and colitis, unspecified; D64.9 Anemia, unspecified; Z86.010 Personal history of colon polyps
CPT/HCPCS: 43239; 45380; 45385; 88342 ×2; 88305 ×2; 00813; J2704; 813